=== PATIENT | female | born 1940 | race Caucasian/White ===

== ENCOUNTER 2016-08-02 12:25 | Emergency (ER) | payer MEDICARE, OTHER ==
--- NOTE | 2016-08-02 12:51 | ER Document Report ---
ED Medical Screen (RME) - General Chief Complaint: Urinary Incontinence Stated Complaint: DISORIENTED,NO CONTROL OF URINE Time seen by provider: 12:49 Mode of Arrival: Wheelchair Information source: Patient, Relative TRAVEL OUTSIDE OF THE [place] IN LAST 30 DAYS: No - HPI Patient complains to provider of: urinary frequency, dysuria, forgetful Onset: Other - 4 days Onset/Duration: Gradual, Persistent Quality of pain: Pressure Severity: Moderate Associated Symptoms: Dysuria. denies: Diarrhea, Fever, Nausea, Vomiting Exacerbated by: Denies Relieved by: Denies Similar symptoms previously: Yes Recently seen / treated by doctor: Yes - Amoxicillin for bronchitis - Related Data Allergies/Adverse Reactions: No Known Allergies Allergy (Verified 08/02/16 12:33) Past Medical History - Past Medical History Cardiac Medical History: Reports: Hx Hypercholesterolemia - no meds x 2 years, after 60 pound wt loss, Hx Hypertension - no meds x 2 years, after 60 pound wt loss Denies: Hx Atrial Fibrillation, Hx Congestive Heart Failure, Hx Coronary Artery Disease, Hx Heart Attack, Hx Peripheral Vascular Disease, Hx Pulmonary Embolism, Hx Heart Murmur Pulmonary Medical History: Reports: Hx Pneumonia - denies hospitalization, Hx Sleep Apnea - CPAP ill fitting, does not wear Denies: Hx Asthma, Hx Bronchitis, Hx COPD, Hx Respiratory Failure, Hx Tuberculosis Neurological Medical History: Reports: Hx Cerebrovascular Accident - 2011 , Hx Seizures - possibly r/t severe "migraine type" AGUILAR's Endocrine Medical History: Reports: Hx Diabetes Mellitus Type 2, Hx Hypothyroidism - meds Rx'ed . Denies: Hx Graves' Disease, Hx Hyperthyroidism Renal/ Medical History: Denies: Hx End Stage Renal Disease, Hx Kidney Stones, Hx Ovarian Cysts, Hx Peritoneal Dialysis, Hx Pelvic Inflammatory Disease Malignancy Medical History: Denies: Hx Breast Cancer, Hx Cervical Cancer, Hx Leukemia, Hx Lung Cancer, Hx Ovarian Cancer GI Medical History: Reports: Hx Gastroesophageal Reflux Disease - meds x 20+ years, Hx Ulcer - . Denies: Hx Crohn's Disease, Hx Hepatitis, Hx Hiatal Hernia, Hx Irritable Bowel, Hx Liver Failure Musculoskeltal Medical History: Reports Hx Arthritis, Denies Hx Fibromyalgia, Denies Hx Multiple Sclerosis, Denies Hx Muscular Dystrophy Psychiatric Medical History: Reports: Hx Dementia, Hx Depression Denies: Hx Bipolar Disorder, Hx Post Traumatic Stress Disorder, Hx Schizophrenia Traumatic Medical History: Reports: Hx Fractures - 5th toe RT foot Infectious Medical History: Denies: Hx Hepatitis, Hx HIV Past Surgical History: Reports: Hx Appendectomy - incidental with YOSELIN, Hx Cholecystectomy - open sheila , Hx Hysterectomy - YOSELIN BSO . Denies: Hx Bowel Surgery, Hx Section, Hx Colostomy, Hx Coronary Artery Bypass Graft, Hx Gastric Bypass Surgery, Hx Herniorrhaphy, Hx Mastectomy, Hx Open Heart Surgery, Hx Pacemaker, Hx Tonsillectomy, Hx Tubal Ligation - Immunizations Immunizations up to date: Yes Hx Diphtheria, Pertussis, Tetanus Vaccination: Yes Physical Exam - Vital signs Vitals: Temp Pulse Resp BP Pulse Ox 97.4 F 77 18 184/104 H 94 08/02/16 12:33 08/02/16 12:33 08/02/16 12:33 08/02/16 12:33 08/02/16 12:33 Course - Vital Signs Vital signs: Temp Pulse Resp BP Pulse Ox 97.4 F 77 18 184/104 H 94 08/02/16 12:33 08/02/16 12:33 08/02/16 12:33 08/02/16 12:33 08/02/16 12:33
--- NOTE | 2016-08-02 13:26 | ER Document Report ---
ED GI/ - General Chief Complaint: Urinary Incontinence Stated Complaint: DISORIENTED,NO CONTROL OF URINE Mode of Arrival: Wheelchair Information source: Patient TRAVEL OUTSIDE OF THE [place] IN LAST 30 DAYS: No - HPI Patient complains to provider of: Other - CONFUSED, URINARY URGENCY W/ INCONTINENCE Onset: Yesterday Timing/Duration: Gradual, Waxing and waning Quality of pain: No pain Severity at maximum: Moderate Severity in ED: Mild Context: denies: Bad food, Lifting, Out of the country travel, , Recent trauma Vaginal bleeding (Compared to normal period): None Menstrual period history: S/P menopausal Associated symptoms: Urinary urgency. denies: Chills, Fever, Hematuria, Nausea , Sweaty Exacerbated by: Denies Relieved by: Denies Similar symptoms previously: Yes - W/ UTI Recently seen / treated by doctor: Yes - Rx FOR BRONCHITIS (AMOXIL) - Related Data Allergies/Adverse Reactions: doxepin Allergy (Verified 08/02/16 12:49) Home Medications: Current Home Medications Buspirone HCl [Buspar 10 mg Tablet] 10 mg PO BID 08/02/16 [History] Hydromorphone HCl 2 mg PO BID 08/02/16 [History] Temazepam 30 mg PO DAILY 08/02/16 [History] Temazepam [Restoril 15 mg Capsule] 30 mg PO QHS 08/02/16 [History] Past Medical History - General Information source: Patient, Relative - Social History Smoking Status: Never Smoker Cigarette use (# per day): No Chew tobacco use (# tins/day): No Smoking Education Provided: No Frequency of alcohol use: None Drug Abuse: None Lives with: Family Family History: Reviewed & Not Pertinent Patient has suicidal ideation: No Patient has homicidal ideation: No - Past Medical History Cardiac Medical History: Reports: Hx Hypercholesterolemia - no meds x 2 years, after 60 pound wt loss, Hx Hypertension - no meds x 2 years, after 60 pound wt loss Denies: Hx Atrial Fibrillation, Hx Congestive Heart Failure, Hx Coronary Artery Disease, Hx Heart Attack, Hx Peripheral Vascular Disease, Hx Pulmonary Embolism, Hx Heart Murmur Pulmonary Medical History: Reports: Hx Pneumonia - denies hospitalization, Hx Sleep Apnea - CPAP ill fitting, does not wear Denies: Hx Asthma, Hx Bronchitis, Hx COPD, Hx Respiratory Failure, Hx Tuberculosis Neurological Medical History: Reports: Hx Cerebrovascular Accident - 2006, 2011 , Hx Seizures - possibly r/t severe "migraine type" AGUILAR's Endocrine Medical History: Reports: Hx Diabetes Mellitus Type 2, Hx Hypothyroidism - meds Rx'ed . Denies: Hx Graves' Disease, Hx Hyperthyroidism Renal/ Medical History: Denies: Hx End Stage Renal Disease, Hx Kidney Stones, Hx Ovarian Cysts, Hx Peritoneal Dialysis, Hx Pelvic Inflammatory Disease Malignancy Medical History: Denies: Hx Breast Cancer, Hx Cervical Cancer, Hx Leukemia, Hx Lung Cancer, Hx Ovarian Cancer GI Medical History: Reports: Hx Gastroesophageal Reflux Disease - meds x 20+ years, Hx Ulcer - . Denies: Hx Crohn's Disease, Hx Hepatitis, Hx Hiatal Hernia, Hx Irritable Bowel, Hx Liver Failure Musculoskeltal Medical History: Reports Hx Arthritis, Denies Hx Fibromyalgia, Denies Hx Multiple Sclerosis, Denies Hx Muscular Dystrophy Psychiatric Medical History: Reports: Hx Dementia, Hx Depression Denies: Hx Bipolar Disorder, Hx Post Traumatic Stress Disorder, Hx Schizophrenia Traumatic Medical History: Reports: Hx Fractures - 5th toe RT foot Infectious Medical History: Denies: Hx Hepatitis, Hx HIV Past Surgical History: Reports: Hx Appendectomy - incidental with YOSELIN, Hx Cholecystectomy - open sheila , Hx Hysterectomy - YOSELIN BSO . Denies: Hx Bowel Surgery, Hx Section, Hx Colostomy, Hx Coronary Artery Bypass Graft, Hx Gastric Bypass Surgery, Hx Herniorrhaphy, Hx Mastectomy, Hx Open Heart Surgery, Hx Pacemaker, Hx Tonsillectomy, Hx Tubal Ligation - Immunizations Immunizations up to date: Yes Hx Diphtheria, Pertussis, Tetanus Vaccination: Yes Hx Pneumococcal Vaccination: 01/15/11 Review of Systems - Review of Systems Constitutional: No symptoms reported. denies: Chills, Diaphoresis, Fever EENT: No symptoms reported Cardiovascular: No symptoms reported Respiratory: Cough Gastrointestinal: No symptoms reported. denies: Diarrhea, Nausea, Vomiting Genitourinary: See HPI Female Genitourinary: Post menopausal Musculoskeletal: No symptoms reported Skin: No symptoms reported Neurological/Psychological: No symptoms reported Physical Exam - Vital signs Vitals: Temp Pulse Resp BP Pulse Ox 97.4 F 77 18 184/104 H 94 08/02/16 12:33 08/02/16 12:33 08/02/16 12:33 08/02/16 12:33 08/02/16 12:33 Interpretation: Hypertensive. No: Tachycardic, Hypoxic, Tachypneic, Febrile - General General appearance: Appears well, Alert In distress: None - HEENT Head: Normocephalic Eyes: Normal Conjunctiva: Normal Ears: Normal Nasal: Normal Mucous membranes: Dry, Other - [place]ES ON PALATE, ? MARY - Respiratory Respiratory status: No respiratory distress Chest status: Nontender Breath sounds: Nonproductive cough - FREQUENT - Cardiovascular Rhythm: Regular Heart sounds: Normal auscultation Murmur: No - Abdominal Inspection: Normal Distension: No distension Bowel sounds: Normal Tenderness: Tender - SUPRAPUBIC - Back Back: Normal - Extremities General upper extremity: Normal inspection General lower extremity: Normal inspection. No: Tender, Edema - Neurological Neuro grossly intact: Yes Cognition: Normal Orientation: AAOx4 - Psychological Associated symptoms: Normal affect, Normal mood - Skin Skin Temperature: Warm Skin Moisture: Dry Skin Color: Normal Skin Turgor: Elastic Course - Re-evaluation Re-evalutation: 08/02/16 19:13 Patient states she feels much better. Denies thirst. Blood sugar is coming down satisfactorily. Hypertension persists and will need treatment. Diagnoses and treatment plan discussed with patient and family. She will be started on glyburide and a low dose of lisinopril and should be followed up by her PCP in 3 days. - Vital Signs Vital signs: Temp Pulse Resp BP Pulse Ox 97.4 F 77 18 168/90 H 94 08/02/16 12:33 08/02/16 12:33 08/02/16 18:01 08/02/16 18:01 08/02/16 18:01 - Laboratory Result Diagrams: 08/02/16 13:00 08/02/16 13:00 Laboratory results interpreted by me: 08/02/16 08/02/16 08/02/16 13:00 13:00 13:05 WBC 19.4 H Hgb 16.2 H Hct 47.6 H Seg Neutrophils % 91.7 H Lymphocytes % 5.5 L Monocytes % 2.5 L Absolute Neutrophils 17.7 H Sodium 129.2 L Chloride 92 L Carbon Dioxide 21 L BUN 33 H Glucose 672 H* POC Glucose Alkaline Phosphatase 133 H Urine Glucose (UA) >=500 H Urine Blood SMALL H 08/02/16 08/02/16 08/02/16 14:38 15:28 16:50 WBC Hgb Hct Seg Neutrophils % Lymphocytes % Monocytes % Absolute Neutrophils Sodium Chloride Carbon Dioxide BUN Glucose POC Glucose 476 H* 489 H* 340 H Alkaline Phosphatase Urine Glucose (UA) Urine Blood 08/02/16 17:46 WBC Hgb Hct Seg Neutrophils % Lymphocytes % Monocytes % Absolute Neutrophils Sodium Chloride Carbon Dioxide BUN Glucose POC Glucose 326 H Alkaline Phosphatase Urine Glucose (UA) Urine Blood - Diagnostic Test Radiology reviewed: Image reviewed, Reports reviewed Discharge - Discharge Clinical Impression: Dehydration, Hyperglycemia without ketosis, Essential hypertension Condition: Stable Disposition: HOME, SELF-CARE Instructions: Dehydration (OM), Diabetes (OM), High Blood Pressure, Requiring Treatment ([facility]) Additional Instructions: REST, DRINK PLENTY OF FLUIDS. AVOID SUGAR IN YOUR DIET. TAKE YOUR MEDS PRESCRIBED. FOLLOW UP WITH YOUR PRIMARY CARE PROVIDER WITHIN THE NEXT 3 DAYS FOR RE-CHECK OF YOUR BLOOD PRESSURE AND BLOOD SUGAR. RETURN TO E.R. IF YOU GET WORSE, ANY TIME. Prescriptions: Glyburide 5 mg PO QAM #7 tablet Lisinopril 5 mg PO DAILY #7 tablet Referrals: SIGIFREDO LEVINE MD [Primary Care Provider] - Follow up in 3-5 days
[2016-08-02 13:44] LABS: ALANINE AMINOTRANSFERASE 51 U/L (9-52); ALBUMIN 4.3 g/dL (3.5-5.0); ALKALINE PHOSPHATASE 133 U/L (38-126); ANION GAP 16 (5-19); ASPARTATE AMINO TRANSFERASE 32 U/L (14-36); BILIRUBIN,DIRECT 0.3 mg/dL (0.0-0.4); BILIRUBIN,TOTAL 0.9 mg/dL (0.2-1.3); BLOOD UREA NITROGEN 33 mg/dL (7-20); CALCIUM 10.1 mg/dL (8.4-10.2); CARBON DIOXIDE 21 mmol/L (22-30); CHLORIDE 92 mmol/L (98-107); CREATININE RESULT 0.79 mg/dL (0.52-1.25); SODIUM 129.2 mmol/L (137-145); TOTAL PROTEIN 7.6 g/dL (6.3-8.2)
[2016-08-02 13:49] LABS: ABSOLUTE LYMPHOCYTES (AUTO) 1.1 10^3/uL (0.5-4.7); ABSOLUTE MONOCYTES (AUTO) 0.5 10^3/uL (0.1-1.4); ABSOLUTE NEUT (AUTO) 17.7 10^3/uL (1.7-8.2); BASOPHILS % (AUTO) 0.2 % (0-2); EOSINOPHILS % (AUTO) 0.1 % (0-6); HEMATOCRIT 47.6 % (36.0-47.0); HEMOGLOBIN 16.2 g/dL (12.0-15.5); LYMPHOCYTES % (AUTO) 5.5 % (13-45); MEAN CORPUSCULAR HEMOGLOBIN 31.2 pg (27.0-33.4); MEAN CORPUSCULAR VOLUME 92 fl (80-97); MONOCYTES % (AUTO) 2.5 % (3-13); RED BLOOD COUNT 5.18 10^6/uL (3.72-5.28); RED CELL DISTRIBUTION WIDTH 12.7 % (11.5-14.0); SEGMENTED NEUTROPHILS % (AUTO) 91.7 % (42-78); WHITE BLOOD COUNT 19.4 10^3/uL (4.0-10.5)
[2016-08-02 14:07] LABS: GLUCOSE 672 mg/dL (75-110)
[2016-08-02 14:19] LABS: APPEARANCE,URINE CLEAR; BILIRUBIN,URINE NEGATIVE (NEGATIVE); GLUCOSE, URINE >=500 mg/dL (NEGATIVE); KETONES,URINE NEGATIVE (NEGATIVE); LEUKOCYTE ESTERASE,URINE NEGATIVE (NEGATIVE); NITRITE,URINE NEGATIVE (NEGATIVE); PROTEIN,URINE NEGATIVE (NEGATIVE); URINE SPECIFIC GRAVITY 1.029; UROBILINOGEN,URINE NEGATIVE mg/dL (<2.0)
[2016-08-02] MEDS ORDERED: NORMAL SALINE 1000 ML 1,000 ML IV PRN (14:19)
[2016-08-02] MEDS ORDERED: NORMAL SALINE 100 ML with INSULIN REGULAR, HUMAN 100 UNIT IV PRN ×2 (14:21)
[2016-08-02] MEDS ORDERED: INSULIN REG, HUMAN 100 UNIT/ML 3 ML VIAL (PYX) ONE (14:37)
[2016-08-02] MEDS ORDERED: METFORMIN HCL 500 MG TABLET PO ONE (15:33)
[2016-08-02] MEDS ORDERED: LISINOPRIL 5 MG TABLET PO ONE (19:11)
[2016-08-02 20:26] VITALS: BP 153/94
== END 2016-08-02 20:25 | disposition home or self-care (01) ==
LOC: ER 12:25
DX: E11.65 Type 2 diabetes mellitus with hyperglycemia (principal); I10 Essential (primary) hypertension; E86.0 Dehydration; R32 Unspecified urinary incontinence; R39.15 Urgency of urination; R05 Cough; Z87.440 Personal history of urinary (tract) infections; Z88.8 Allergy status to other drugs, medicaments and biological substances; Z86.73 Personal history of transient ischemic attack (TIA), and cerebral infarction without residual deficits
CPT/HCPCS: 99284; 96360; 96361; 36415; 87040; 87086; 82962; 85025; 87088; 80053; 81001; 87186; 71010; A9270 ×2; J7030

== ENCOUNTER 2017-07-24 16:22 | Emergency (ER) | payer MEDICARE, OTHER ==
--- NOTE | 2017-07-24 17:22 | ER Document Report ---
ED Medical Screen (RME) - General Chief Complaint: Weakness Stated Complaint: weakness Time Seen by Provider: 07/24/17 17:01 Notes: Patient is a 77-year-old female presents emergency department via EMS with a chief complaint of generalized weakness, abdominal discomfort, vomiting and dark tarry stools for 1 week. She is on Aggrenox for previous TIAs and CVAs. Past medical history significant for vascular dementia, hypothyroidism, depression anxiety. At home she takes Aggrenox, denies pill, hydromorphone, Synthroid, Nexium, Restasis, temazepam, Wellbutrin, BuSpar, lisinopril. TRAVEL OUTSIDE OF THE [place] IN LAST 30 DAYS: No - Related Data Allergies/Adverse Reactions: doxepin Allergy (Verified 08/02/16 12:49) Past Medical History - Past Medical History Cardiac Medical History: Reports: Hx Hypercholesterolemia - no meds x 2 years, after 60 pound wt loss, Hx Hypertension - no meds x 2 years, after 60 pound wt loss Denies: Hx Atrial Fibrillation, Hx Congestive Heart Failure, Hx Coronary Artery Disease, Hx Heart Attack, Hx Peripheral Vascular Disease, Hx Pulmonary Embolism, Hx Heart Murmur Pulmonary Medical History: Reports: Hx Pneumonia - denies hospitalization, Hx Sleep Apnea - CPAP ill fitting, does not wear Denies: Hx Asthma, Hx Bronchitis, Hx COPD, Hx Respiratory Failure, Hx Tuberculosis Neurological Medical History: Reports: Hx Cerebrovascular Accident - 2006, 2011 , Hx Seizures - possibly r/t severe "migraine type" AGUILAR's Endocrine Medical History: Reports: Hx Diabetes Mellitus Type 2, Hx Hypothyroidism - meds Rx'ed . Denies: Hx Graves' Disease, Hx Hyperthyroidism Renal/ Medical History: Denies: Hx End Stage Renal Disease, Hx Kidney Stones, Hx Ovarian Cysts, Hx Peritoneal Dialysis, Hx Pelvic Inflammatory Disease Malignancy Medical History: Denies: Hx Breast Cancer, Hx Cervical Cancer, Hx Leukemia, Hx Lung Cancer, Hx Ovarian Cancer GI Medical History: Reports: Hx Gastroesophageal Reflux Disease - meds x 20+ years, Hx Ulcer - . Denies: Hx Crohn's Disease, Hx Hepatitis, Hx Hiatal Hernia, Hx Irritable Bowel, Hx Liver Failure, Hx Pancreatitis Musculoskeltal Medical History: Reports Hx Arthritis, Denies Hx Fibromyalgia, Denies Hx Multiple Sclerosis, Denies Hx Muscular Dystrophy Psychiatric Medical History: Reports: Hx Dementia, Hx Depression Denies: Hx Bipolar Disorder, Hx Post Traumatic Stress Disorder, Hx Schizophrenia Traumatic Medical History: Reports: Hx Fractures - 5th toe RT foot Infectious Medical History: Denies: Hx Hepatitis, Hx HIV Past Surgical History: Reports: Hx Appendectomy - incidental with YOSELIN, Hx Cholecystectomy - open sheila , Hx Hysterectomy - YOSELIN BSO 1969'. Denies: Hx Bowel Surgery, Hx Section, Hx Colostomy, Hx Coronary Artery Bypass Graft, Hx Gastric Bypass Surgery, Hx Herniorrhaphy, Hx Mastectomy, Hx Open Heart Surgery, Hx Pacemaker, Hx Tonsillectomy, Hx Tubal Ligation - Immunizations Immunizations up to date: Yes Hx Diphtheria, Pertussis, Tetanus Vaccination: Yes Physical Exam - Vital signs Vitals: Temp Pulse Resp BP Pulse Ox 97.9 F 60 16 128/68 H 97 07/24/17 16:47 07/24/17 16:47 07/24/17 16:47 07/24/17 16:47 07/24/17 16:47 - Notes Notes: PHYSICAL EXAM GENERAL: Alert, interacts well. Pale HEAD: Normocephalic, atraumatic. EYES: Pupils equal, round, and reactive to light. Extraocular movements intact. ENT: Oral mucosa moist, tongue midline. NECK: Full range of motion. Supple. Trachea midline. LUNGS: Clear to auscultation bilaterally, no wheezes, rales, or rhonchi. No respiratory distress. HEART: Regular rate and rhythm. No murmurs, gallops, or rubs. ABDOMEN: Soft, nondistended, nontender. No guarding, rebound, or rigidity.. Bowel sounds present in all 4 quadrants. EXTREMITIES: Moves all 4 extremities spontaneously. No edema, radial and dorsalis pedis pulses 2/4 bilaterally. No cyanosis. NEUROLOGICAL: Alert and oriented x4. Normal speech. PSYCH: Normal affect, normal mood. SKIN: Warm, dry, normal turgor. No rashes or lesions noted. Course - Vital Signs Vital signs: Temp Pulse Resp BP Pulse Ox 97.9 F 60 16 128/68 H 97 07/24/17 16:47 07/24/17 16:47 07/24/17 16:47 07/24/17 16:47 07/24/17 16:47
[2017-07-24 17:52] LABS: ABSOLUTE LYMPHOCYTES (AUTO) 0.7 10^3/uL (0.5-4.7); ABSOLUTE MONOCYTES (AUTO) 0.3 10^3/uL (0.1-1.4); ABSOLUTE NEUT (AUTO) 3.5 10^3/uL (1.7-8.2); BASOPHILS % (AUTO) 0.6 % (0-2); HEMATOCRIT 35.8 % (36.0-47.0); HEMOGLOBIN 12.7 g/dL (12.0-15.5); LYMPHOCYTES % (AUTO) 14.7 % (13-45); MEAN CORPUSCULAR HEMOGLOBIN 35.1 pg (27.0-33.4); MEAN CORPUSCULAR HGB CONC 35.3 g/dL (32.0-36.0); MEAN CORPUSCULAR VOLUME 100 fl (80-97); PLATELET COUNT 114 10^3/uL (150-450); RED CELL DISTRIBUTION WIDTH 13.4 % (11.5-14.0); SEGMENTED NEUTROPHILS % (AUTO) 77.7 % (42-78); TOTAL CELLS COUNTED % (AUTO) 100 %; WHITE BLOOD COUNT 4.5 10^3/uL (4.0-10.5)
[2017-07-24 18:05] LABS: INTERNATIONAL RATION (INR) 1.08; PROTHROMBIN TIME 14.5 SEC (11.4-15.4)
[2017-07-24 18:06] LABS: PARTIAL THROMBOPLASTIN TIME 38.4 SEC (23.5-35.8)
[2017-07-24 18:13] LABS: ALANINE AMINOTRANSFERASE 239 U/L (9-52); ALBUMIN 4.1 g/dL (3.5-5.0); ALKALINE PHOSPHATASE 69 U/L (38-126); ANION GAP 11 (5-19); ASPARTATE AMINO TRANSFERASE 195 U/L (14-36); BILIRUBIN,DIRECT 0.4 mg/dL (0.0-0.4); BILIRUBIN,TOTAL 0.6 mg/dL (0.2-1.3); BLOOD UREA NITROGEN 22 mg/dL (7-20); CALCIUM 8.8 mg/dL (8.4-10.2); CARBON DIOXIDE 25 mmol/L (22-30); CHLORIDE 102 mmol/L (98-107); GLUCOSE 130 mg/dL (75-110); POTASSIUM 3.9 mmol/L (3.6-5.0); SODIUM 138.3 mmol/L (137-145); TOTAL PROTEIN 7.2 g/dL (6.3-8.2)
[2017-07-24] MEDS ORDERED: PANTOPRAZOLE SODIUM 40 MG VIAL IV PRN (19:35)
[2017-07-24] MEDS ORDERED: PANTOPRAZOLE SODIUM 40 MG VIAL IV ONE (19:36)
--- NOTE | 2017-07-24 19:40 | ER Document Report ---
ED General - General Chief Complaint: General Weakness Stated Complaint: weakness Time Seen by Provider: 07/24/17 17:01 Notes: Patient is a 77-year-old female with a past medical history of TIA and stroke chronically anticoagulated on Aggrenox as a result of this prior history, hypertension, hyperlipidemia, and dementia who presents with 3 days of nausea, vomiting, dark stool, and generalized fatigue. The patient has no prior history of GI bleeds. Her symptoms have been worsening since onset. Nothing improves or worsens her symptoms. She has not seen a primary care doctor regarding today's concerns. She does note a dull, constant, aching upper abdominal pain. She states that this pain is overall been unchanged since onset. She denies any fever or constitutional symptoms. Family at the bedside supports her history. TRAVEL OUTSIDE OF THE [place] IN LAST 30 DAYS: No - Related Data Allergies/Adverse Reactions: doxepin Allergy (Verified 07/24/17 17:46) Past Medical History - General Information source: Patient, Relative - Social History Smoking Status: Never Smoker Chew tobacco use (# tins/day): No Frequency of alcohol use: None Drug Abuse: None Lives with: Family Family History: Reviewed & Not Pertinent Patient has suicidal ideation: No Patient has homicidal ideation: No - Past Medical History Cardiac Medical History: Reports: Hx Hypercholesterolemia - no meds x 2 years, after 60 pound wt loss, Hx Hypertension - no meds x 2 years, after 60 pound wt loss Denies: Hx Atrial Fibrillation, Hx Congestive Heart Failure, Hx Coronary Artery Disease, Hx Heart Attack, Hx Peripheral Vascular Disease, Hx Pulmonary Embolism, Hx Heart Murmur Pulmonary Medical History: Reports: Hx Pneumonia - denies hospitalization, Hx Sleep Apnea - CPAP ill fitting, does not wear Denies: Hx Asthma, Hx Bronchitis, Hx COPD, Hx Respiratory Failure, Hx Tuberculosis Neurological Medical History: Reports: Hx Cerebrovascular Accident - 2006, 2011 , Hx Seizures - possibly r/t severe "migraine type" AGUILAR's Endocrine Medical History: Reports: Hx Diabetes Mellitus Type 2, Hx Hypothyroidism - meds Rx'ed . Denies: Hx Graves' Disease, Hx Hyperthyroidism Renal/ Medical History: Denies: Hx End Stage Renal Disease, Hx Kidney Stones, Hx Ovarian Cysts, Hx Peritoneal Dialysis, Hx Pelvic Inflammatory Disease Malignancy Medical History: Denies: Hx Breast Cancer, Hx Cervical Cancer, Hx Leukemia, Hx Lung Cancer, Hx Ovarian Cancer GI Medical History: Reports: Hx Gastroesophageal Reflux Disease - meds x 20+ years, Hx Ulcer - . Denies: Hx Crohn's Disease, Hx Hepatitis, Hx Hiatal Hernia, Hx Irritable Bowel, Hx Liver Failure, Hx Pancreatitis Musculoskeltal Medical History: Reports Hx Arthritis, Denies Hx Fibromyalgia, Denies Hx Multiple Sclerosis, Denies Hx Muscular Dystrophy Psychiatric Medical History: Reports: Hx Dementia, Hx Depression Denies: Hx Bipolar Disorder, Hx Post Traumatic Stress Disorder, Hx Schizophrenia Traumatic Medical History: Reports: Hx Fractures - 5th toe RT foot Infectious Medical History: Denies: Hx Hepatitis, Hx HIV Past Surgical History: Reports: Hx Appendectomy - incidental with YOSELIN, Hx Cholecystectomy - open sheila , Hx Hysterectomy - YOSELIN BSO . Denies: Hx Bowel Surgery, Hx Section, Hx Colostomy, Hx Coronary Artery Bypass Graft, Hx Gastric Bypass Surgery, Hx Herniorrhaphy, Hx Mastectomy, Hx Open Heart Surgery, Hx Pacemaker, Hx Tonsillectomy, Hx Tubal Ligation - Immunizations Immunizations up to date: Yes Hx Diphtheria, Pertussis, Tetanus Vaccination: Yes Hx Pneumococcal Vaccination: 01/15/11 Review of Systems - Review of Systems Notes: Constitutional: Negative for fever. HENT: Negative for sore throat. Eyes: Negative for visual changes. Cardiovascular: Negative for chest pain. Respiratory: Negative for shortness of breath. Gastrointestinal: Positive for abdominal pain, vomiting and melanotic stool Genitourinary: Negative for dysuria. Musculoskeletal: Negative for back pain. Skin: Negative for rash. Neurological: Negative for headaches, weakness or numbness. 10 point ROS negative except as marked above and in HPI. Physical Exam - Vital signs Vitals: Temp Pulse Resp BP Pulse Ox 97.9 F 60 16 128/68 H 97 07/24/17 16:47 07/24/17 16:47 07/24/17 16:47 07/24/17 16:47 07/24/17 16:47 Interpretation: Normal Notes: PHYSICAL EXAMINATION: GENERAL: Well-appearing, well-nourished and in no acute distress. HEAD: Atraumatic, normocephalic. EYES: Pupils equal round and reactive to light, extraocular movements intact, sclera anicteric, conjunctiva are normal. ENT: nares patent, oropharynx clear without exudates. Moist mucous membranes. NECK: Normal range of motion, supple without lymphadenopathy LUNGS: Breath sounds clear to auscultation bilaterally and equal. No wheezes rales or rhonchi. HEART: Regular rate and rhythm without murmurs ABDOMEN: Soft, mild epigastric abdominal tenderness to palpation but no other localized areas of tenderness, normoactive bowel sounds. No guarding, no rebound. No masses appreciated. Rectal exam: Melanotic stool EXTREMITIES: Normal range of motion, no pitting or edema. No cyanosis. NEUROLOGICAL: No focal neurological deficits. Moves all extremities spontaneously and on command. PSYCH: Normal mood, normal affect. SKIN: Warm, Dry, normal turgor, no rashes or lesions noted. Course - Re-evaluation Re-evalutation: 07/24/17 19:38 Patient presents with 3 days of melanotic stools with associated generalized weakness, nausea and vomiting without hematemesis. The patient has some mild epigastric and left upper quadrant abdominal tenderness on palpation but no areas of rebound or guarding. She is anticoagulated on Aggrenox. Her vitals are within acceptable limits. Bedside examination does show melena on rectal examination. We do not currently have GI coverage and given that patient is anticoagulated, is actively having melanotic stools with associated symptoms suggesting upper GI bleed she will require transfer to [facility] for GI evaluation. She has been started on Protonix infusion after a bolus of Protonix. She has been made n.p.o. Antiplatelet is being held. Will continue to monitor until patient is able to be transferred. 07/24/17 19:53 I discussed this case with Dr. Adi Joiner who has accepted the patient for transfer. She remains hemodynamically within acceptable limits. Waiting transport 07/24/17 22:33 Patient has remained hemodynamically within normal limits. Transport has arrived for transfer and patient is stable for transport at this time. - Vital Signs Vital signs: Temp Pulse Resp BP Pulse Ox 98.1 F 67 13 129/67 H 96 07/24/17 22:34 07/24/17 17:45 07/24/17 22:34 07/24/17 22:34 07/24/17 22:34 - Laboratory Result Diagrams: 07/24/17 17:36 07/24/17 17:36 Laboratory results interpreted by me: 07/24/17 07/24/17 07/24/17 17:36 17:36 17:36 RBC 3.60 L Hct 35.8 L MCV 100 H MCH 35.1 H Plt Count 114 L APTT 38.4 H BUN 22 H Glucose 130 H AST 195 H ALT 239 H Discharge - Discharge Clinical Impression: Upper GI bleed, Melena, Blood loss anemia, Upper abdominal pain Nausea and vomiting Qualifiers: Vomiting type: unspecified Vomiting Intractability: non-intractable Qualified Code(s): R11.2 - Nausea with vomiting, unspecified Condition: Fair Disposition: [facility] Referrals: SIGIFREDO LEVINE MD [Primary Care Provider] - Follow up as needed
[2017-07-24 22:42] VITALS: BP 129/67
== END 2017-07-24 22:50 | disposition short-term general hospital (02) ==
LOC: ER 16:22
DX: K92.2 Gastrointestinal hemorrhage, unspecified (principal); D50.0 Iron deficiency anemia secondary to blood loss (chronic); R53.1 Weakness; R11.2 Nausea with vomiting, unspecified; R53.83 Other fatigue; R10.10 Upper abdominal pain, unspecified; R10.816 Epigastric abdominal tenderness; R10.812 Left upper quadrant abdominal tenderness; I10 Essential (primary) hypertension; E11.9 Type 2 diabetes mellitus without complications; Z86.73 Personal history of transient ischemic attack (TIA), and cerebral infarction without residual deficits; Z79.02 Long term (current) use of antithrombotics/antiplatelets; Z88.8 Allergy status to other drugs, medicaments and biological substances; Z87.19 Personal history of other diseases of the digestive system; Z90.49 Acquired absence of other specified parts of digestive tract
CPT/HCPCS: 99285; 96365; 96366; 86900; 86901; 36415; 86850; 85025; 85610; 85730; 82272; 80053; C9113; S0164

== ENCOUNTER 2017-12-25 14:49 | Emergency (ER) | payer MEDICARE, OTHER ==
[2017-12-25 15:45] LABS: INTERNATIONAL RATION (INR) 0.95; PROTHROMBIN TIME 13.2 SEC (11.4-15.4)
[2017-12-25 15:54] LABS: ABSOLUTE EOSINOPHILS # (AUTO) 0.1 10^3/uL (0.0-0.6); ABSOLUTE LYMPHOCYTES (AUTO) 1.9 10^3/uL (0.5-4.7); ABSOLUTE MONOCYTES (AUTO) 0.5 10^3/uL (0.1-1.4); ABSOLUTE NEUT (AUTO) 3.8 10^3/uL (1.7-8.2); BASOPHILS % (AUTO) 0.3 % (0-2); EOSINOPHILS % (AUTO) 1.5 % (0-6); HEMATOCRIT 39.4 % (36.0-47.0); HEMOGLOBIN 13.8 g/dL (12.0-15.5); LYMPHOCYTES % (AUTO) 29.8 % (13-45); MEAN CORPUSCULAR HEMOGLOBIN 32.7 pg (27.0-33.4); MEAN CORPUSCULAR HGB CONC 34.9 g/dL (32.0-36.0); MEAN CORPUSCULAR VOLUME 94 fl (80-97); MONOCYTES % (AUTO) 7.4 % (3-13); PLATELET COUNT 217 10^3/uL (150-450); RED BLOOD COUNT 4.21 10^6/uL (3.72-5.28); RED CELL DISTRIBUTION WIDTH 14.9 % (11.5-14.0); TOTAL CELLS COUNTED % (AUTO) 100 %; WHITE BLOOD COUNT 6.2 10^3/uL (4.0-10.5)
[2017-12-25 15:55] LABS: APPEARANCE,URINE SLIGHTLY-CLOUDY; BILIRUBIN,URINE NEGATIVE (NEGATIVE); COLOR,URINE YELLOW; GLUCOSE, URINE 50 mg/dL (NEGATIVE); KETONES,URINE NEGATIVE (NEGATIVE); LEUKOCYTE ESTERASE,URINE NEGATIVE (NEGATIVE); NITRITE,URINE NEGATIVE (NEGATIVE); PROTEIN,URINE NEGATIVE (NEGATIVE); URINE SPECIFIC GRAVITY 1.019; UROBILINOGEN,URINE NEGATIVE mg/dL (<2.0)
[2017-12-25 15:57] LABS: ALANINE AMINOTRANSFERASE 22 U/L (9-52); ALBUMIN 4.1 g/dL (3.5-5.0); ALKALINE PHOSPHATASE 61 U/L (38-126); ANION GAP 9 (5-19); ASPARTATE AMINO TRANSFERASE 16 U/L (14-36); BILIRUBIN,DIRECT 0.2 mg/dL (0.0-0.4); BILIRUBIN,TOTAL 0.5 mg/dL (0.2-1.3); BLOOD UREA NITROGEN 24 mg/dL (7-20); CALCIUM 9.3 mg/dL (8.4-10.2); CARBON DIOXIDE 27 mmol/L (22-30); CHLORIDE 105 mmol/L (98-107); CREATINE KINASE 31 U/L (30-135); GLUCOSE 92 mg/dL (75-110); POTASSIUM 3.9 mmol/L (3.6-5.0); SODIUM 140.5 mmol/L (137-145); TOTAL PROTEIN 7.2 g/dL (6.3-8.2)
[2017-12-25 16:02] LABS: VENOUS BLOOD BASE EXCESS 0.5 mmol/L; VENOUS BLOOD HCO3 28.6 mmol/L (20-32); VENOUS BLOOD PCO2 59.9 mmHg (35-63); VENOUS BLOOD PH 7.3 (7.30-7.42)
[2017-12-25 16:07] LABS: CREATINE KINASE MB 1.29 ng/mL (<4.55)
[2017-12-25 16:08] LABS: TROPONIN I < 0.012 ng/mL
[2017-12-25] MEDS ORDERED: NORMAL SALINE 1000 ML 1,000 ML IV PRN (16:12)
--- NOTE | 2017-12-25 16:59 | RADIOLOGY REPORT (SQ) ---
EXAM DESCRIPTION: CHEST 2 VIEWS COMPLETED DATE/TIME: 12/25/2017 4:50 pm REASON FOR STUDY: ams COMPARISON: 05/21/2015 EXAM PARAMETERS: NUMBER OF VIEWS: two views TECHNIQUE: Digital Frontal and Lateral radiographic views of the chest acquired. RADIATION DOSE: NA LIMITATIONS: none FINDINGS: LUNGS AND PLEURA: No opacities, masses or pneumothorax. No pleural effusion. MEDIASTINUM AND HILAR STRUCTURES: No masses or contour abnormalities. HEART AND VASCULAR STRUCTURES: Heart normal size. No evidence for failure. BONES: No acute findings. HARDWARE: None in the chest. OTHER: No other significant finding. IMPRESSION: 1. NO ACUTE RADIOGRAPHIC FINDING IN THE CHEST. TECHNICAL DOCUMENTATION: JOB ID: [id number] [employer] All Rights Reserved Reading location - IP/workstation name: [email or web address]
--- NOTE | 2017-12-25 17:08 | RADIOLOGY REPORT (SQ) ---
EXAM DESCRIPTION: CT HEAD WITHOUT COMPLETED DATE/TIME: 12/25/2017 4:53 pm REASON FOR STUDY: ams COMPARISON: MRI brain 05/20/[address] brain exams since 10/08/2009, most recently 07/04/2015 TECHNIQUE: Axial images acquired through the brain without intravenous contrast. Images reviewed wi th bone, brain and subdural windows. Additional sagittal and coronal reconstructions were generated. Images stored on PACS. All CT scanners at this facility use dose modulation, iterative reconstruction, and/or weight based d osing when appropriate to reduce radiation dose to as low as reasonably achievable (ALARA). [facility]: Dose Right [facility]: CareDose [facility]: Dose Right [facility]: Teradose 4D [facility]: Caliber Data RADIATION DOSE: CT Rad equipment meets quality standard of care and radiation dose reduction techniq ues were employed. CTDIvol: 53.2 mGy. DLP: 964 mGy-cm. mGy. LIMITATIONS: None. FINDINGS: VENTRICLES: Normal size and contour. CEREBRUM: Old left occipital lobe infarct. Old lacunar infarcts in the bilateral basal ganglia and b ifrontal deep periventricular white matter. No CT evidence of acute large territory ischemic change, acute intracranial hemorrhage, mass effect, or midline shift. CEREBELLUM: No masses. No hemorrhage. No alteration of density. No evidence for acute infarction. EXTRAAXIAL SPACES: No fluid collections. No masses. ORBITS AND GLOBE: No intra- or extraconal masses. Normal contour of globe without masses. CALVARIUM: No fracture. PARANASAL SINUSES: No fluid or mucosal thickening. SOFT TISSUES: No mass or hematoma. OTHER: No other significant finding. IMPRESSION: No acute findings. Old left occipital infarct. Old lacunar infarcts in the bilateral basal ganglia and bifrontal deep p eriventricular white matter EVIDENCE OF ACUTE STROKE: NO. COMMENT: Quality ID # [id number]: Final reports with documentation of one or more dose reduction techniques (e.g., Automated exposure control, adjustment of the mA and/or kV according to patient size, use of iterative reconstruction technique) TECHNICAL DOCUMENTATION: JOB ID: [id number] [employer]- All Rights Reserved Reading location - IP/workstation name: [email or web address]
--- NOTE | 2017-12-25 18:50 | ER Document Report ---
ED General - General Chief Complaint: Altered Mental Status Stated Complaint: ALTERED MENTAL STATUS Time Seen by Provider: 12/25/17 15:19 TRAVEL OUTSIDE OF THE [place] IN LAST 30 DAYS: No - HPI Patient complains to provider of: Feeling unwell Notes: Patient coming in for evaluation of feeling unwell states not feeling herself for the last 2 3 days. Generalized weakness. Patient denies any fevers chills nausea vomiting diarrhea. Family bedside states noted patient on exam that she has a urinary tract infection. Patient is chronic pain patient currently on Butrans also takes oral pain medication states she is not taking any extra medications her last few days states that she has had a good appetite staying hydrated and eating plenty of food. Patient denies any chest pain abdominal pain hip pain denies any recent falls or denies any recent trauma. - Related Data Allergies/Adverse Reactions: doxepin Allergy (Verified 07/24/17 17:46) Past Medical History - Social History Smoking Status: Unknown if Ever Smoked Family History: Reviewed & Not Pertinent Patient has suicidal ideation: No Patient has homicidal ideation: No - Past Medical History Cardiac Medical History: Reports: Hx Hypercholesterolemia - no meds x 2 years, after 60 pound wt loss, Hx Hypertension - no meds x 2 years, after 60 pound wt loss Denies: Hx Atrial Fibrillation, Hx Congestive Heart Failure, Hx Coronary Artery Disease, Hx Heart Attack, Hx Peripheral Vascular Disease, Hx Pulmonary Embolism, Hx Heart Murmur Pulmonary Medical History: Reports: Hx Pneumonia - denies hospitalization, Hx Sleep Apnea - CPAP ill fitting, does not wear Denies: Hx Asthma, Hx Bronchitis, Hx COPD, Hx Respiratory Failure, Hx Tuberculosis Neurological Medical History: Reports: Hx Cerebrovascular Accident - 2011 , Hx Seizures - possibly r/t severe "migraine type" AGUILAR's Endocrine Medical History: Reports: Hx Diabetes Mellitus Type 2, Hx Hypothyroidism - meds Rx'ed . Denies: Hx Graves' Disease, Hx Hyperthyroidism Renal/ Medical History: Denies: Hx End Stage Renal Disease, Hx Kidney Stones, Hx Ovarian Cysts, Hx Peritoneal Dialysis, Hx Pelvic Inflammatory Disease Malignancy Medical History: Denies: Hx Breast Cancer, Hx Cervical Cancer, Hx Leukemia, Hx Lung Cancer, Hx Ovarian Cancer GI Medical History: Reports: Hx Gastroesophageal Reflux Disease - meds x 20+ years, Hx Ulcer - . Denies: Hx Crohn's Disease, Hx Hepatitis, Hx Hiatal Hernia, Hx Irritable Bowel, Hx Liver Failure, Hx Pancreatitis Musculoskeletal Medical History: Reports Hx Arthritis, Denies Hx Fibromyalgia, Denies Hx Multiple Sclerosis, Denies Hx Muscular Dystrophy Psychiatric Medical History: Reports: Hx Dementia, Hx Depression Denies: Hx Bipolar Disorder, Hx Post Traumatic Stress Disorder, Hx Schizophrenia Traumatic Medical History: Reports: Hx Fractures - 5th toe RT foot Infectious Medical History: Denies: Hx Hepatitis, Hx HIV Past Surgical History: Reports: Hx Appendectomy - incidental with YOSELIN, Hx Cholecystectomy - open sheila , Hx Hysterectomy. Denies: Hx Bowel Surgery , Hx Section, Hx Colostomy, Hx Coronary Artery Bypass Graft, Hx Gastric Bypass Surgery, Hx Herniorrhaphy, Hx Mastectomy, Hx Open Heart Surgery, Hx Pacemaker, Hx Tonsillectomy, Hx Tubal Ligation - Immunizations Immunizations up to date: Yes Hx Diphtheria, Pertussis, Tetanus Vaccination: Yes Hx Pneumococcal Vaccination: 01/15/11 Review of Systems - Review of Systems Constitutional: No symptoms reported EENT: No symptoms reported Cardiovascular: No symptoms reported Respiratory: No symptoms reported Gastrointestinal: No symptoms reported Genitourinary: No symptoms reported Female Genitourinary: No symptoms reported Musculoskeletal: No symptoms reported Skin: No symptoms reported Hematologic/Lymphatic: No symptoms reported Neurological/Psychological: Weakness -: Yes All other systems reviewed and negative Physical Exam - Vital signs Vitals: Temp 97.6 F 12/25/17 15:04 Interpretation: Hypotensive - General General appearance: Appears well, Alert - HEENT Head: Normocephalic, Atraumatic Eyes: Normal Pupils: PERRL - Respiratory Respiratory status: No respiratory distress Chest status: Nontender Breath sounds: Normal Chest palpation: Normal - Cardiovascular Rhythm: Regular Heart sounds: Normal auscultation Murmur: No - Abdominal Inspection: Normal Distension: No distension Bowel sounds: Normal Tenderness: Nontender Organomegaly: No organomegaly - Back Back: Normal, Nontender - Extremities General upper extremity: Normal inspection, Nontender, Normal color, Normal ROM , Normal temperature General lower extremity: Normal inspection, Nontender, Normal color, Normal ROM , Normal temperature, Normal weight bearing. No: Raine's sign - Neurological Neuro grossly intact: Yes Cognition: Normal Orientation: AAOx4 Charlotte Coma Scale Eye Opening: Spontaneous Charlotte Coma Scale Verbal: Oriented Charlotte Coma Scale Motor: Obeys Commands Charlotte Coma Scale Total: 15 Speech: Normal Motor strength normal: LUE, RUE, LLE, RLE Sensory: Normal - Psychological Associated symptoms: Normal affect, Normal mood - Skin Skin Temperature: Warm Skin Moisture: Dry Skin Color: Normal Course - Re-evaluation Re-evalutation: 12/25/17 21:37 Patient coming in for evaluation of generalized weakness. Blood pressure did improve that there fluid bolus here in ER. Patient states she has not taken any of her extra blood pressure medication or her extra pain medication. At this time no signs of sepsis no signs of any other critical pathology seen. Patient able ambulate per her norm family states that she is handling better after IV fluids. Possible etiology of polypharmacy recommended the patient take her blood pressure at home if the systolic blood pressure is not above 120 to hold off on taking her blood pressure medication also recommend following up with her primary care physician for further medication reconciliation. Patient will be discharged home - Vital Signs Vital signs: Temp Pulse Resp BP Pulse Ox 98.6 F 79 19 110/49 L 100 12/25/17 15:07 12/25/17 15:25 12/25/17 18:23 12/25/17 18:23 12/25/17 18:23 - Laboratory Result Diagrams: 12/25/17 15:12 12/25/17 15:12 Laboratory results interpreted by me: 12/25/17 12/25/17 12/25/17 15:12 15:12 15:25 RDW 14.9 H BUN 24 H Est GFR ( Amer) 55 L Est GFR (Non-Af Amer) 45 L Urine Glucose (UA) 50 H Discharge - Discharge Clinical Impression: Feeling unwell, No problem, feared complaint unfounded, Transient hypotension Disposition: HOME, SELF-CARE Additional Instructions: Your laboratory studies today EKG CT scan of her head chest x-ray urinalysis did not show any signs of infection at this time. Your blood pressure was low upon arrival here to the ER. I would hold off on taking any further blood pressure medications I would make sure that you are drinking and eating healthy diet. I would discuss your pain management regimen with your primary care physician and your pain management doctors as at this along with her blood pressure medications may be the etiology of why you are not been feeling well. Return to the ER if you develop a fever or for any other concerns. Please hold her medication for your blood pressure tonight. Prior to taking her blood pressure medication I would recommend taking your blood pressure with a blood pressure cuff. If the top number is below 120 I would recommend not taking her blood pressure medication. Please make sure you follow-up with your primary care physician and the other physicians for further medication management. Referrals: SIGIFREDO LEVINE MD [Primary Care Provider] - Follow up as needed
[2017-12-25 18:52] VITALS: BP 110/49
--- NOTE | 2017-12-26 09:30 | EKG REPORT ---
SEVERITY:- OTHERWISE NORMAL ECG - SINUS RHYTHM VENTRICULAR PREMATURE COMPLEX : Confirmed by: Nasir Bentley 26-Dec-2017 09:30:18
== END 2017-12-25 19:24 | disposition home or self-care (01) ==
LOC: ER 14:49
DX: I95.89 Other hypotension (principal); R41.82 Altered mental status, unspecified; R53.1 Weakness; I10 Essential (primary) hypertension; E11.9 Type 2 diabetes mellitus without complications
CPT/HCPCS: 93005; 99285; 96360; 96361; 36415; 82553; 82550; 85025; 85610; 80053; 81001; 84484; 82803; 71046; 70450; 93010; J7030

== ENCOUNTER 2018-01-30 10:38 | Emergency (ER) | payer MEDICARE, OTHER ==
[2018-01-30] MEDS ORDERED: ONDANSETRON HCL INJ/PF 4 MG/2 ML SDV IV ONE (11:05)
[2018-01-30] MEDS ORDERED: MORPHINE SULFATE 10 MG/ML INJ IV ONE (11:05)
--- NOTE | 2018-01-30 11:11 | ER Document Report ---
ED Fall - General Chief Complaint: Fall Injury Stated Complaint: LEFT SHOULDER/HIP PAIN Time Seen by Provider: 01/30/18 10:54 Notes: 77-year-old female lost her balance 3 times this morning and fell. The patient did hit her head but had no loss of conscious. Denies neck pain but states she is always have a sore neck. She complains of severe 10 out of 10 left hip pain. She states it hurts to move it EMS brought her in in a pelvic binder. She does have a history of femur fracture on that side. She denies chest pain denies shortness of breath denies abdominal pain. Denies any dizziness before the fall states she has lost her balance on and off in the past. She denies any recent illnesses no fever chills cough sore throat no night sweats gland swelling or hemoptysis. Denies any hematuria or dysuria. TRAVEL OUTSIDE OF THE [place] IN LAST 30 DAYS: No - Related data Allergies/Adverse Reactions: doxepin Allergy (Verified 07/24/17 17:46) Past Medical History - Social History Smoking Status: Unknown if Ever Smoked Family History: Reviewed & Not Pertinent - Past Medical History Cardiac Medical History: Reports: Hx Hypercholesterolemia - no meds x 2 years, after 60 pound wt loss, Hx Hypertension - no meds x 2 years, after 60 pound wt loss Denies: Hx Atrial Fibrillation, Hx Congestive Heart Failure, Hx Coronary Artery Disease, Hx Heart Attack, Hx Peripheral Vascular Disease, Hx Pulmonary Embolism, Hx Heart Murmur Pulmonary Medical History: Reports: Hx Pneumonia - denies hospitalization, Hx Sleep Apnea - CPAP ill fitting, does not wear Denies: Hx Asthma, Hx Bronchitis, Hx COPD, Hx Respiratory Failure, Hx Tuberculosis Neurological Medical History: Reports: Hx Cerebrovascular Accident - 2006, 2011 , Hx Seizures - possibly r/t severe "migraine type" AGUILAR's Endocrine Medical History: Reports: Hx Diabetes Mellitus Type 2, Hx Hypothyroidism - meds Rx'ed . Denies: Hx Graves' Disease, Hx Hyperthyroidism Renal/ Medical History: Denies: Hx End Stage Renal Disease, Hx Kidney Stones, Hx Ovarian Cysts, Hx Peritoneal Dialysis, Hx Pelvic Inflammatory Disease Malignancy Medical History: Denies: Hx Breast Cancer, Hx Cervical Cancer, Hx Leukemia, Hx Lung Cancer, Hx Ovarian Cancer GI Medical History: Reports: Hx Gastroesophageal Reflux Disease - meds x 20+ years, Hx Ulcer - . Denies: Hx Crohn's Disease, Hx Hepatitis, Hx Hiatal Hernia, Hx Irritable Bowel, Hx Liver Failure, Hx Pancreatitis Musculoskeletal Medical History: Reports Hx Arthritis, Denies Hx Fibromyalgia, Denies Hx Multiple Sclerosis, Denies Hx Muscular Dystrophy Psychiatric Medical History: Reports: Hx Dementia, Hx Depression Denies: Hx Bipolar Disorder, Hx Post Traumatic Stress Disorder, Hx Schizophrenia Traumatic Medical History: Reports: Hx Fractures - 5th toe RT foot Infectious Medical History: Denies: Hx Hepatitis, Hx HIV Past Surgical History: Reports: Hx Appendectomy - incidental with YOSELIN, Hx Cholecystectomy - open sheila , Hx Hysterectomy. Denies: Hx Bowel Surgery , Hx Section, Hx Colostomy, Hx Coronary Artery Bypass Graft, Hx Gastric Bypass Surgery, Hx Herniorrhaphy, Hx Mastectomy, Hx Open Heart Surgery, Hx Pacemaker, Hx Tonsillectomy, Hx Tubal Ligation - Immunizations Immunizations up to date: Yes Hx Diphtheria, Pertussis, Tetanus Vaccination: Yes Hx Pneumococcal Vaccination: 01/15/11 Review of Systems - Review of Systems Constitutional: denies: Chills, Fever Cardiovascular: denies: Chest pain, Dyspnea Respiratory: denies: Hemoptysis, Short of breath Gastrointestinal: denies: Nausea, Vomiting, Blood streaked bowels, Black stools , Rectal bleeding Genitourinary: denies: Dysuria, Hematuria Musculoskeletal: Joint pain Skin: denies: Rash Neurological/Psychological: Other - Head injury -: Yes All other systems reviewed and negative Physical Exam - Vital signs Vitals: Temp 98.1 F 01/30/18 10:41 - Notes Notes: GENERAL_APPEARANCE: well_nourished, alert, cooperative, peers uncomfortable VITALS: reviewed, see vital signs table. HEAD: Slight tenderness left occiput area no obvious large hematoma or open wound noted depressions in the skull noted EYES: PERRL, EOMI, conjunctiva_clear. NOSE: no_nasal_discharge. MOUTH: (-)decreased moisture. THROAT: no_tonsilar_inflammation, no_airway_obstruction. no_lymphadenopathy NECK: supple, no focal_neck_tenderness, states neck just feels stiff, (-) thyromegaly. BACK: no_back_tenderness. CHEST_WALL: no_chest_tenderness. LUNGS: no_wheezing, no_rales, no_rhonchi, (-)accessory muscle use, good air exchange bilateral. HEART: normal_rate, normal_rhythm, normal_S1, normal_S2, (-)S3, (-)S4, no_ murmur, no_rub. ABDOMEN: normal_BS, soft, no_abd_tenderness, (-)guarding, (-)rebound, no_ organomegaly, no_abd_masses. EXTREMITIES: good pulses in all_extremities, there is slight rotation and shortening noted to the left leg with pain at the greater trochanter, no_edema. SKIN: warm, dry, good_color, no_rash. MENTAL_STATUS: speech_clear, oriented_X_3, normal_affect, responds_ appropriately to questions. NEURO: Neg Motor or Sensory Deficits on exam, CN 2-12 intact, DTR 2+ symmetric x 4, No cerbellar signs Course - Re-evaluation Re-evalutation: 01/30/18 11:11 Patient had several mechanical falls this morning she is always had an issue with balance. Will get a CT of her head to assess for any traumatic injuries or any other kind of PAIL TESTER lesion causing this. Patient will have some generalized blood work done. We will x-ray her hip to look for fractures. Coags preop labs if needed. We will keep her n.p.o. 01/30/18 12:47 All imaging is negative the left shoulder there may be a slight AC separation the patient is not really specifically tender there. She does have pain upon moving the shoulder around I spoke with that to her. She does not want a sling she states she would likely make her falling worse. We will discharge the patient home. - Vital Signs Vital signs: Temp Pulse Resp BP Pulse Ox 98.1 F 21 H 110/63 96 01/30/18 10:41 01/30/18 11:01 01/30/18 11:01 01/30/18 11:01 - Laboratory Result Diagrams: 01/30/18 12:00 01/30/18 12:00 - Diagnostic Test Radiology results interpreted by me: 01/30/18 12:46 Shoulder X-Ray 01/30/18 00:00 IMPRESSION: Question widening at the left acromioclavicular joint. Bones osteopenic. Left shoulder films otherwise unremarkable Chest X-Ray 01/30/18 11:03 IMPRESSION: NO ACUTE RADIOGRAPHIC FINDING IN THE CHEST. Hip X-Ray 01/30/18 11:03 IMPRESSION: No acute findings Cervical Spine CT 01/30/18 11:04 IMPRESSION: No acute fracture or malalignment Head CT 01/30/18 11:04 IMPRESSION: No acute findings. EVIDENCE OF ACUTE STROKE: NO. Discharge - Discharge Clinical Impression: Accident due to mechanical fall without injury Qualifiers: Encounter type: initial encounter Qualified Code(s): W19.XXXA - Unspecified fall, initial encounter Contusion of left hip Qualifiers: Encounter type: initial encounter Qualified Code(s): S70.02XA - Contusion of left hip, initial encounter Contusion of left shoulder Qualifiers: Encounter type: initial encounter Qualified Code(s): S40.012A - Contusion of left shoulder, initial encounter Head injury Qualifiers: Encounter type: initial encounter Qualified Code(s): S09.90XA - Unspecified injury of head, initial encounter Condition: Good Disposition: HOME, SELF-CARE Instructions: Head Injury Precautions ([facility]), Shoulder Injury ([facility]) Referrals: SIGIFREDO LEVINE MD [Primary Care Provider] - Follow up as needed
[2018-01-30] MEDS ORDERED: OXYCODONE-ACETAMINOPHEN 5-325 MG TABLET PO ONE (12:04)
--- NOTE | 2018-01-30 12:06 | RADIOLOGY REPORT (SQ) ---
EXAM DESCRIPTION: CHEST SINGLE VIEW COMPLETED DATE/TIME: 01/30/2018 11:37 am REASON FOR STUDY: fall COMPARISON: Chest films 03/09/2015, 05/21/2015, 12/25/2017 EXAM PARAMETERS: NUMBER OF VIEWS: One view. TECHNIQUE: Single frontal radiographic view of the chest acquired. RADIATION DOSE: NA LIMITATIONS: None. FINDINGS: LUNGS AND PLEURA: No opacities, masses or pneumothorax. No pleural effusion. MEDIASTINUM AND HILAR STRUCTURES: No masses. Contour normal. HEART AND VASCULAR STRUCTURES: Heart normal in size. Normal vasculature. BONES: No acute findings. HARDWARE: Clips right upper quadrant post cholecystectomy OTHER: No other significant finding. IMPRESSION: NO ACUTE RADIOGRAPHIC FINDING IN THE CHEST. TECHNICAL DOCUMENTATION: JOB ID: [id number] [employer]- All Rights Reserved Reading location - IP/workstation name: [email or web address]
--- NOTE | 2018-01-30 12:09 | RADIOLOGY REPORT (SQ) ---
EXAM DESCRIPTION: SHOULDER LEFT 2 OR MORE VIEWS COMPLETED DATE/TIME: 01/30/2018 11:37 am REASON FOR STUDY: FALL fall, injury, left shoulder pain COMPARISON: Chest and rib films 07/04/2015 Chest films 08/02/2016, 01/30/2018 NUMBER OF VIEWS: Three views. TECHNIQUE: Internal rotation, external rotation, and Y view images acquired of the left shoulder. LIMITATIONS: None. FINDINGS: MINERALIZATION: Osteopenic BONES: No acute fracture or dislocation. No worrisome bone lesions. JOINTS: Question widening of the left acromioclavicular joint. Correlate clinically. Normal alignment at the left glenohumeral joint. VISUALIZED LUNGS AND RIBS: No pneumothorax. No rib fracture. SOFT TISSUES: No radiopaque foreign body. OTHER: No other significant finding. IMPRESSION: Question widening at the left acromioclavicular joint. Bones osteopenic. Left shoulder films otherwise unremarkable TECHNICAL DOCUMENTATION: JOB ID: [id number] [employer]- All Rights Reserved Reading location - IP/workstation name: [email or web address]
--- NOTE | 2018-01-30 12:10 | RADIOLOGY REPORT (SQ) ---
EXAM DESCRIPTION: HIP LEFT AP/LATERAL COMPLETED DATE/TIME: 01/30/2018 11:37 am REASON FOR STUDY: fall injury pain, left hip pain COMPARISON: CT abdomen pelvis 07/04/2015 NUMBER OF VIEWS: Two views. TECHNIQUE: AP pelvis and additional frog-leg view of the left hip. LIMITATIONS: None. FINDINGS: MINERALIZATION: Osteopenic LEFT HIP: Old left subcapital femoral neck fracture stabilized with 3 lag screws. No acute fracture. Mild left hip joint space narrowing. No bulky bony spurring. RIGHT HIP: Mild right hip joint space narrowing. No acute fracture or malalignment. PUBIS AND ISCHIUM: No fracture. PELVIS: No fracture. SACRUM: No fracture or dislocation. No worrisome bone lesions. LOWER LUMBAR SPINE: Degenerative disc changes at L3-4 and L4-5 SOFT TISSUES: No findings. OTHER: No other significant finding. IMPRESSION: No acute findings TECHNICAL DOCUMENTATION: JOB ID: [id number] [employer]- All Rights Reserved Reading location - IP/workstation name: [email or web address]
--- NOTE | 2018-01-30 12:15 | RADIOLOGY REPORT (SQ) ---
EXAM DESCRIPTION: CT CERVICAL SPINE WITHOUT COMPLETED DATE/TIME: 01/30/2018 11:46 am REASON FOR STUDY: fall hip pain fall injury neck pain COMPARISON: CT cervical spine 09/27/2014 TECHNIQUE: Axial images acquired through the cervical spine without intravenous contrast. Images re viewed with lung, soft tissue and bone windows. Reconstructed coronal and sagittal MPR images review ed. Images stored on PACS. All CT scanners at this facility use dose modulation, iterative reconstruction, and/or weight based d osing when appropriate to reduce radiation dose to as low as reasonably achievable (ALARA). [facility]: Dose Right [facility]: CareDose [facility]: Dose Right [facility]: Teradose 4D [facility]: [employer] RADIATION DOSE: CT Rad equipment meets quality standard of care and radiation dose reduction techniq ues were employed. CTDIvol: 17.2 mGy. DLP: 301 mGy-cm. mGy. LIMITATIONS: None. FINDINGS: ALIGNMENT: Anatomic. MINERALIZATION: Normal. VERTEBRAL BODIES: No fractures or dislocation. DISCS: Diffuse disc space loss of height with mild posterior disc bulge and bony spurring at C4-5, C5 -6, and C6-7 with moderate bilateral foraminal narrowing at these levels. FACETS, LATERAL MASSES, POSTERIOR ELEMENTS: No fractures. No dislocation. No acute findings. HARDWARE: None in the spine. VISUALIZED RIBS: No fractures. LUNG APICES AND SOFT TISSUES: No significant or acute findings. OTHER: No other significant finding. IMPRESSION: No acute fracture or malalignment TECHNICAL DOCUMENTATION: JOB ID: [id number] Quality ID # [id number]: Final reports with documentation of one or more dose reduction techniques (e.g., Au tomated exposure control, adjustment of the mA and/or kV according to patient size, use of iterative reconstruction technique) 2010 [employer]- All Rights Reserved Reading location - IP/workstation name: [email or web address]
--- NOTE | 2018-01-30 12:19 | RADIOLOGY REPORT (SQ) ---
EXAM DESCRIPTION: CT HEAD WITHOUT COMPLETED DATE/TIME: 01/30/2018 11:49 am REASON FOR STUDY: fall hip pain fall, injury, head pain COMPARISON: CT brain 12/25/2017, 07/04/2015, 01/30/2015, 03/18/2012 TECHNIQUE: Axial images acquired through the brain without intravenous contrast. Images reviewed wi th bone, brain and subdural windows. Additional sagittal and coronal reconstructions were generated. Images stored on PACS. All CT scanners at this facility use dose modulation, iterative reconstruction, and/or weight based d osing when appropriate to reduce radiation dose to as low as reasonably achievable (ALARA). [facility]: Dose Right [facility]: CareDose [facility]: Dose Right [facility]: Teradose 4D [facility]: Smart [employer] RADIATION DOSE: CT Rad equipment meets quality standard of care and radiation dose reduction techniq ues were employed. CTDIvol: 53.2 mGy. DLP: 1017 mGy-cm. mGy. LIMITATIONS: None. FINDINGS: VENTRICLES: Normal size and contour. CEREBRUM: No CT evidence of acute large territory ischemic change, acute intracranial hemorrhage, mas s effect, or midline shift. Old infarcts in the left occipital lobe, right thalamus, left basal ganglia. Spotty moderate small v essel ischemic change in the hemispheric white matter. These findings are stable. CEREBELLUM: No masses. No hemorrhage. Mild pontine small vessel ischemic change. Old lacunar infar ct left cerebellar hemisphere. No evidence for acute infarction. EXTRAAXIAL SPACES: No fluid collections. No masses. ORBITS AND GLOBE: No intra- or extraconal masses. Post bilateral cataract surgery. CALVARIUM: No fracture. PARANASAL SINUSES: No fluid or mucosal thickening. SOFT TISSUES: No mass or hematoma. OTHER: No other significant finding. IMPRESSION: No acute findings. EVIDENCE OF ACUTE STROKE: NO. COMMENT: Quality ID # 436: Final reports with documentation of one or more dose reduction techniques (e.g., Automated exposure control, adjustment of the mA and/or kV according to patient size, use of iterative reconstruction technique) TECHNICAL DOCUMENTATION: JOB ID: [id number] [email or web address]- All Rights Reserved Reading location - IP/workstation name: [email or web address]
[2018-01-30 12:23] LABS: ABSOLUTE EOSINOPHILS # (AUTO) 0.1 10^3/uL (0.0-0.6); ABSOLUTE LYMPHOCYTES (AUTO) 0.8 10^3/uL (0.5-4.7); ABSOLUTE MONOCYTES (AUTO) 0.3 10^3/uL (0.1-1.4); BASOPHILS % (AUTO) 0.3 % (0-2); EOSINOPHILS % (AUTO) 1.4 % (0-6); HEMATOCRIT 35.9 % (36.0-47.0); HEMOGLOBIN 12.4 g/dL (12.0-15.5); LYMPHOCYTES % (AUTO) 15.1 % (13-45); MEAN CORPUSCULAR HEMOGLOBIN 32.2 pg (27.0-33.4); MEAN CORPUSCULAR HGB CONC 34.6 g/dL (32.0-36.0); MEAN CORPUSCULAR VOLUME 93 fl (80-97); MONOCYTES % (AUTO) 6.6 % (3-13); RED BLOOD COUNT 3.85 10^6/uL (3.72-5.28); RED CELL DISTRIBUTION WIDTH 13.9 % (11.5-14.0); SEGMENTED NEUTROPHILS % (AUTO) 76.6 % (42-78); TOTAL CELLS COUNTED % (AUTO) 100 %; WHITE BLOOD COUNT 5.2 10^3/uL (4.0-10.5)
[2018-01-30 12:27] LABS: INTERNATIONAL RATION (INR) 1.04; PROTHROMBIN TIME 14.1 SEC (11.4-15.4)
[2018-01-30 13:02] LABS: ANION GAP 7 (5-19); BLOOD UREA NITROGEN 24 mg/dL (7-20); CALCIUM 8.8 mg/dL (8.4-10.2); CARBON DIOXIDE 28 mmol/L (22-30); CHLORIDE 104 mmol/L (98-107); POTASSIUM 3.9 mmol/L (3.6-5.0); SODIUM 138.6 mmol/L (137-145)
--- NOTE | 2018-01-30 13:02 | EKG REPORT ---
SEVERITY:- NORMAL ECG - SINUS RHYTHM : Confirmed by: Robe Triplett MD 30-Jan-2018 13:01:32
[2018-01-30 13:03] LABS: GLUCOSE 178 mg/dL (75-110)
[2018-01-30 13:09] LABS: PLATELET COUNT 148 10^3/uL (150-450)
[2018-01-30 13:15] VITALS: BP 111/54
== END 2018-01-30 13:27 | disposition home or self-care (01) ==
LOC: ER 10:38
DX: S70.02XA Contusion of left hip, initial encounter (principal); S40.012A Contusion of left shoulder, initial encounter; S09.90XA Unspecified injury of head, initial encounter; M25.552 Pain in left hip; M25.512 Pain in left shoulder; W19.XXXA Unspecified fall, initial encounter; M21.70 Unequal limb length (acquired), unspecified site; E11.9 Type 2 diabetes mellitus without complications; Z88.8 Allergy status to other drugs, medicaments and biological substances
CPT/HCPCS: 93005; 99284; 36415; 85025; 85610; 85730; 80048; 71045; 73502; 73030; 70450; 72125; 93010; A9270

== ENCOUNTER 2018-02-05 13:36 | Emergency (ER) | payer MEDICARE, OTHER ==
--- NOTE | 2018-02-05 14:08 | ER Document Report ---
ED Medical Screen (RME) - General Chief Complaint: Hip Pain Stated Complaint: FALL/HIP PAIN Time Seen by Provider: 02/05/18 13:51 Notes: Patient is a 77-year-old female with recent fall that presents to the emergency department for chief complaint of bilateral hip pain, left worse than right. Patient is having extreme difficulty ambulating, due to pain in her hips, the left is worse than the right, she had a fall on the , was x-rayed at that time and was negative, but she has been having difficulty ambulating even a few steps at home, so she was brought back to the emergency department by her family. She currently has a Butrans patch on, and has been taking hydromorphone at home which has not been helping.. ROS: Unless otherwise stated in this report the patient's positive and negative responses for review of systems for constitutional, eyes, ENT, cardiovascular, respiratory, gastrointestinal, neurological, genitourinary, musculoskeletal, and integumentary systems and related systems to the presenting problem are either as stated in the HPI or were not pertinent or were negative for the symptoms and/or complaints related to the presenting medical problem. PHYSICAL EXAMINATION: Vital signs reviewed. GENERAL: Well-appearing, well-nourished and in no acute distress. HEAD: Atraumatic, normocephalic. EYES: Pupils equal round extraocular movements intact, conjunctiva are normal. ENT: Nares patent NECK: Normal range of motion CV: Heart regular rate and rhythm LUNGS: No respiratory distress Musculoskeletal: Pain with range of motion of the hips, patient examined in the wheelchair, therefore difficult exam, but with internal and external rotation patient did have pain, bilaterally, and tenderness with palpation over the greater trochanters bilaterally. NEUROLOGICAL: Normal speech PSYCH: Normal mood, normal affect. MDM: Patient seen and examined for rapid initial assessment. Vital signs reviewed. A comprehensive ED assessment and evaluation of the patient, analysis of test results and completion of the medical decision making process will be conducted by additional ED providers. *Note is created using voice recognition software and may contain spelling, syntax or grammatical errors. TRAVEL OUTSIDE OF THE [place] IN LAST 30 DAYS: No - Related Data Allergies/Adverse Reactions: doxepin Allergy (Verified 07/24/17 17:46) Past Medical History - Social History Chew tobacco use (# tins/day): No Frequency of alcohol use: None Drug Abuse: None - Past Medical History Cardiac Medical History: Reports: Hx Hypercholesterolemia - no meds x 2 years, after 60 pound wt loss, Hx Hypertension - no meds x 2 years, after 60 pound wt loss Denies: Hx Atrial Fibrillation, Hx Congestive Heart Failure, Hx Coronary Artery Disease, Hx Heart Attack, Hx Peripheral Vascular Disease, Hx Pulmonary Embolism, Hx Heart Murmur Pulmonary Medical History: Reports: Hx Pneumonia - denies hospitalization, Hx Sleep Apnea - CPAP ill fitting, does not wear Denies: Hx Asthma, Hx Bronchitis, Hx COPD, Hx Respiratory Failure, Hx Tuberculosis Neurological Medical History: Reports: Hx Cerebrovascular Accident - 2006, 2011 , Hx Seizures - possibly r/t severe "migraine type" AGUILAR's Endocrine Medical History: Reports: Hx Diabetes Mellitus Type 2, Hx Hypothyroidism - meds Rx'ed . Denies: Hx Graves' Disease, Hx Hyperthyroidism Renal/ Medical History: Denies: Hx End Stage Renal Disease, Hx Kidney Stones, Hx Ovarian Cysts, Hx Peritoneal Dialysis, Hx Pelvic Inflammatory Disease Malignancy Medical History: Denies: Hx Breast Cancer, Hx Cervical Cancer, Hx Leukemia, Hx Lung Cancer, Hx Ovarian Cancer GI Medical History: Reports: Hx Gastroesophageal Reflux Disease - meds x 20+ years, Hx Ulcer - . Denies: Hx Crohn's Disease, Hx Hepatitis, Hx Hiatal Hernia, Hx Irritable Bowel, Hx Liver Failure, Hx Pancreatitis Musculoskeltal Medical History: Reports Hx Arthritis, Denies Hx Fibromyalgia, Denies Hx Multiple Sclerosis, Denies Hx Muscular Dystrophy Psychiatric Medical History: Reports: Hx Dementia, Hx Depression Denies: Hx Bipolar Disorder, Hx Post Traumatic Stress Disorder, Hx Schizophrenia Traumatic Medical History: Reports: Hx Fractures - 5th toe RT foot Infectious Medical History: Denies: Hx Hepatitis, Hx HIV Past Surgical History: Reports: Hx Appendectomy - incidental with YOSELIN, Hx Cholecystectomy - open sheila , Hx Hysterectomy. Denies: Hx Bowel Surgery , Hx Section, Hx Colostomy, Hx Coronary Artery Bypass Graft, Hx Gastric Bypass Surgery, Hx Herniorrhaphy, Hx Mastectomy, Hx Open Heart Surgery, Hx Pacemaker, Hx Tonsillectomy, Hx Tubal Ligation - Immunizations Immunizations up to date: Yes Hx Diphtheria, Pertussis, Tetanus Vaccination: Yes Doctor's Discharge - Discharge Referrals: SIGIFREDO LEVINE MD [Primary Care Provider] - Follow up as needed
--- NOTE | 2018-02-05 15:12 | RADIOLOGY REPORT (SQ) ---
EXAM DESCRIPTION: CT PELVIS WITHOUT COMPLETED DATE/TIME: 02/05/2018 2:53 pm REASON FOR STUDY: left hip pain, fall COMPARISON: None. TECHNIQUE: CT scan of the pelvis performed without intravenous or oral contrast. Images reviewed wi th soft tissue and bone windows. Reconstructed coronal and sagittal MPR images reviewed. All images stored on PACS. All CT scanners at this facility use dose modulation, iterative reconstruction, and/or weight based d osing when appropriate to reduce radiation dose to as low as reasonably achievable (ALARA). [facility]: Dose Right [facility]: CareDose [facility]: Dose Right [facility]: Teradose 4D [facility]: [employer] RADIATION DOSE: CT Rad equipment meets quality standard of care and radiation dose reduction techniq ues were employed. CTDIvol: 10.6 mGy. DLP: 406 mGy-cm. mGy. LIMITATIONS: None. FINDINGS: PELVIC BONES: No acute fracture. No worrisome bone lesions. VISUALIZED SPINE: Lumbar degenerative disc changes. Sacralization of L5 on the left. HIP(S): No acute fracture or dislocation. No worrisome bone lesions. PELVIC SOFT TISSUES: No significant findings. EXTRAPELVIC SOFT TISSUES: No significant findings. OTHER: No other significant finding. IMPRESSION: Lumbar findings as described. No acute abnormality in the pelvis or hips. TECHNICAL DOCUMENTATION: JOB ID: [id number] Quality ID # [id number]: Final reports with documentation of one or more dose reduction techniques (e.g., Au tomated exposure control, adjustment of the mA and/or kV according to patient size, use of iterative reconstruction technique) 2010 [employer]- All Rights Reserved Reading location - IP/workstation name: [email or web address]
[2018-02-05] MEDS ORDERED: ACETAMINOPHEN 325 MG TABLET PO ONE (15:37)
--- NOTE | 2018-02-05 15:37 | ER Document Report ---
ED Hip Pain/Injury - General Chief Complaint: Hip Pain Stated Complaint: FALL/HIP PAIN Time Seen by Provider: 02/05/18 13:51 Mode of Arrival: Wheelchair Information source: Patient, Relative - daughter's Notes: 77 yo chronic degenerative back pain pt fell on 01-30 seen in ER and xray negative has not been walking well since. small shuffles, due to anterior left pelvis pain. Has walker and transfer device at home Lives with daughter who struggles with her own back pain. No fever, n/v/d. no abd pain. CT has been done alreay. Butrans 10mcg patch and dilaudid 2mg po bid prescribed by [facility] PA. Has not run out. Used to have PT for ambulation instruction . Normally walks bent forward from the waist. TRAVEL OUTSIDE OF THE [place] IN LAST 30 DAYS: No - Related Data Allergies/Adverse Reactions: doxepin Allergy (Verified 02/05/18 15:01) Past Medical History - General Information source: Patient, Relative - daughter - Social History Smoking Status: Never Smoker Chew tobacco use (# tins/day): No Frequency of alcohol use: None Drug Abuse: None Lives with: Family - daughter Family History: Reviewed & Not Pertinent Patient has suicidal ideation: No Patient has homicidal ideation: No - Past Medical History Cardiac Medical History: Reports: Hx Hypercholesterolemia - no meds x 2 years, after 60 pound wt loss, Hx Hypertension - no meds x 2 years, after 60 pound wt loss Pulmonary Medical History: Reports: Hx Pneumonia - denies hospitalization, Hx Sleep Apnea - CPAP ill fitting, does not wear Neurological Medical History: Reports: Hx Cerebrovascular Accident - 2011 , Hx Seizures - possibly r/t severe "migraine type" AGUILAR's Endocrine Medical History: Reports: Hx Diabetes Mellitus Type 2, Hx Hypothyroidism - meds Rx'ed GI Medical History: Reports: Hx Gastroesophageal Reflux Disease - meds x 20+ years, Hx Ulcer - Musculoskeletal Medical History: Reports Hx Arthritis Psychiatric Medical History: Reports: Hx Dementia, Hx Depression Traumatic Medical History: Reports: Hx Fractures - 5th toe RT foot Past Surgical History: Reports: Hx Appendectomy - incidental with YOSELIN, Hx Cholecystectomy - open sheila , Hx Hysterectomy - Immunizations Immunizations up to date: Yes Hx Diphtheria, Pertussis, Tetanus Vaccination: Yes Hx Pneumococcal Vaccination: 01/15/11 Review of Systems - Review of Systems Constitutional: No symptoms reported EENT: No symptoms reported Cardiovascular: No symptoms reported Respiratory: No symptoms reported Gastrointestinal: No symptoms reported Genitourinary: No symptoms reported Female Genitourinary: No symptoms reported Musculoskeletal: See HPI Skin: No symptoms reported Hematologic/Lymphatic: No symptoms reported Neurological/Psychological: No symptoms reported Physical Exam - Vital signs Vitals: Temp Pulse Resp BP Pulse Ox 97.5 F 73 18 115/62 93 02/05/18 13:44 02/05/18 13:44 02/05/18 13:44 02/05/18 13:44 02/05/18 13:44 Interpretation: Normal - General General appearance: Appears well, Alert - HEENT Head: Normocephalic, Atraumatic Eyes: Normal Pupils: PERRL Neck: Supple - Respiratory Respiratory status: No respiratory distress Chest status: Nontender Breath sounds: Normal Chest palpation: Normal - Cardiovascular Rhythm: Regular Heart sounds: Normal auscultation Murmur: No - Abdominal Inspection: Normal Distension: No distension Bowel sounds: Normal Tenderness: Nontender. No: Tender Organomegaly: No organomegaly Notes: tender over left pubis - Back Back: Normal, Tender - lumbar spine. No: Deformity/step-off, CVA tenderness - Extremities General upper extremity: Normal inspection, Nontender, Normal color, Normal ROM , Normal temperature General lower extremity: Normal inspection, Nontender, Normal color, Normal ROM , Normal temperature, Normal weight bearing. No: Raine's sign - Neurological Neuro grossly intact: Yes Cognition: Normal Orientation: AAOx4 [place] Coma Scale Eye Opening: Spontaneous Dang Coma Scale Verbal: Oriented Dang Coma Scale Motor: Obeys Commands [place] Coma Scale Total: 15 Speech: Normal Motor strength normal: LUE, RUE, LLE, RLE Sensory: Normal - Psychological Associated symptoms: Normal affect, Normal mood - Skin Skin Temperature: Warm Skin Moisture: Dry Skin Color: Normal Skin irregularity: negative: Rash Course - Re-evaluation Re-evalutation: 02/05/18 15:58 CT is scan is negative per radiologist. The patient did ambulate with assistance bearing weight on both legs. While she sat in the wheelchair at this time I showed her how to do range of motion with her hips and legs and her daughter will call her primary care doctor for referral to physical therapy. I also gave the patient permission that she can take her hydromorphone 3 times a day she has an appointment on Monday with Dr. Hayes for the pain medication increase - Vital Signs Vital signs: Temp Pulse Resp BP Pulse Ox 98.3 F 70 20 141/70 H 99 02/05/18 15:54 02/05/18 15:54 02/05/18 15:54 02/05/18 15:54 02/05/18 15:54 Discharge - Discharge Clinical Impression: left suprapubic tenderness, ambulation hesitancy Condition: Good Disposition: HOME, SELF-CARE Instructions: Acetaminophen, Chronic Pain Control ([facility]), Pelvic Pain ([facility]) Additional Instructions: Begin physical therapy for ambulation again Copy of negative CT scan is been given to you for your doctor See Dr. Saldivar on Monday to see if he will increase her pain medication for your chronic back pain Return to the emergency room for any worsening of the symptoms Use your walker slowly and safely Warm compress to the left pubic bone may help the pain Tylenol up to 4000 mg a day for pain Referrals: SIGIFREDO LEVINE MD [Primary Care Provider] - Follow up tomorrow DANIEL HAYES PA [NO LOCAL MD] - 02/07/18
[2018-02-05 15:56] VITALS: BP 141/70
[2018-02-05] MEDS ORDERED: HYDROMORPHONE HCL 2 MG TABLET PO ONE (15:58)
== END 2018-02-05 16:10 | disposition home or self-care (01) ==
LOC: ER 13:36
DX: R10.2 Pelvic and perineal pain (principal); R26.2 Difficulty in walking, not elsewhere classified; M25.552 Pain in left hip; E78.00 Pure hypercholesterolemia, unspecified; I10 Essential (primary) hypertension; Z90.49 Acquired absence of other specified parts of digestive tract; Z90.710 Acquired absence of both cervix and uterus
CPT/HCPCS: 99284; 72192; A9270 ×2

== ENCOUNTER 2018-06-10 14:30 | Emergency (ER) | payer MEDICARE, OTHER ==
[2018-06-10] MEDS ORDERED: NORMAL SALINE 500 ML IV ONE (15:46)
--- NOTE | 2018-06-10 15:51 | ER Document Report ---
ED Medical Screen (RME) - General Chief Complaint: Altered Mental Status Stated Complaint: WEAKNESS, CONFUSION Time Seen by Provider: 06/10/18 15:41 Primary Care Provider: SIGIFREDO LEVINE MD [Primary Care Provider] - Follow up as needed Notes: Patient is a 78-year-old female with dementia that presents to the emergency department for chief complaint of altered mental status, weakness worse over the past several days according to family members decreased appetite and decreased oral intake overall. denies noting any focal deficits, just overall feeling weak. ROS: Other than noted above, the 12 point review of systems was reviewed with the patient and were negative, all pertinent findings are included in the HPI. PHYSICAL EXAMINATION: Vital signs reviewed. GENERAL: Elderly female, no apparent or acute distress HEAD: Atraumatic, normocephalic. EYES: Pupils equal round extraocular movements intact, conjunctiva are normal. ENT: Nares patent NECK: Normal range of motion CV: Heart regular rate and rhythm LUNGS: No respiratory distress Musculoskeletal: Normal range of motion NEUROLOGICAL: Normal speech PSYCH: Normal mood, normal affect. MDM: Patient seen and examined for rapid initial assessment. Vital signs reviewed. A comprehensive ED assessment and evaluation of the patient, analysis of test results and completion of the medical decision making process will be conducted by additional ED providers. *Note is created using voice recognition software and may contain spelling, syntax or grammatical errors. TRAVEL OUTSIDE OF THE [place] IN LAST 30 DAYS: No - Related Data Allergies/Adverse Reactions: doxepin Allergy (Verified 02/05/18 15:01) Past Medical History - Social History Frequency of alcohol use: None Drug Abuse: None - Past Medical History Cardiac Medical History: Reports: Hx Hypercholesterolemia - no meds x 2 years, after 60 pound wt loss, Hx Hypertension - no meds x 2 years, after 60 pound wt loss Denies: Hx Atrial Fibrillation, Hx Congestive Heart Failure, Hx Coronary Artery Disease, Hx Heart Attack, Hx Peripheral Vascular Disease, Hx Pulmonary Embolism, Hx Heart Murmur Pulmonary Medical History: Reports: Hx Pneumonia - denies hospitalization, Hx Sleep Apnea - CPAP ill fitting, does not wear Denies: Hx Asthma, Hx Bronchitis, Hx COPD, Hx Respiratory Failure, Hx Tuberculosis Neurological Medical History: Reports: Hx Cerebrovascular Accident - 2006, 2011, Hx Seizures - possibly r/t severe "migraine type" AGUILAR's Endocrine Medical History: Reports: Hx Diabetes Mellitus Type 2, Hx Hypothyroidism - meds Rx'ed . Denies: Hx Graves' Disease, Hx Hyperthyroidism Renal/ Medical History: Denies: Hx End Stage Renal Disease, Hx Kidney Stones, Hx Ovarian Cysts, Hx Peritoneal Dialysis, Hx Pelvic Inflammatory Disease Malignancy Medical History: Denies: Hx Breast Cancer, Hx Cervical Cancer, Hx Leukemia, Hx Lung Cancer, Hx Ovarian Cancer GI Medical History: Reports: Hx Gastroesophageal Reflux Disease - meds x 20+ years, Hx Ulcer - . Denies: Hx Crohn's Disease, Hx Hepatitis, Hx Hiatal Hernia, Hx Irritable Bowel, Hx Liver Failure, Hx Pancreatitis Musculoskeltal Medical History: Reports Hx Arthritis, Denies Hx Fibromyalgia, Denies Hx Multiple Sclerosis, Denies Hx Muscular Dystrophy Psychiatric Medical History: Reports: Hx Dementia, Hx Depression Denies: Hx Bipolar Disorder, Hx Post Traumatic Stress Disorder, Hx Schizophrenia Traumatic Medical History: Reports: Hx Fractures - 5th toe RT foot Infectious Medical History: Denies: Hx Hepatitis, Hx HIV Past Surgical History: Reports: Hx Appendectomy - incidental with YOSELIN, Hx Cholecystectomy - open sheila , Hx Hysterectomy, Hx Orthopedic Surgery - left femur, trigger finger. Denies: Hx Bowel Surgery, Hx Section, Hx Colostomy, Hx Coronary Artery Bypass Graft, Hx Gastric Bypass Surgery, Hx Herniorrhaphy, Hx Mastectomy, Hx Open Heart Surgery, Hx Pacemaker, Hx Tonsillectomy, Hx Tubal Ligation - Immunizations Immunizations up to date: Yes Hx Diphtheria, Pertussis, Tetanus Vaccination: Yes Physical Exam - Vital signs Vitals: Temp Pulse Resp BP Pulse Ox 98.2 F 73 20 98/54 L 100 06/10/18 14:44 06/10/18 14:44 06/10/18 14:44 06/10/18 14:44 06/10/18 14:44 Course - Vital Signs Vital signs: Temp Pulse Resp BP Pulse Ox 98.2 F 73 20 98/54 L 100 06/10/18 14:44 06/10/18 14:44 06/10/18 14:44 06/10/18 14:44 06/10/18 14:44 Doctor's Discharge - Discharge Referrals: SIGIFREDO LEVINE MD [Primary Care Provider] - Follow up as needed
[2018-06-10 16:52] LABS: ABSOLUTE EOSINOPHILS # (AUTO) 0.1 10^3/uL (0.0-0.6); ABSOLUTE LYMPHOCYTES (AUTO) 1.8 10^3/uL (0.5-4.7); MEAN CORPUSCULAR HGB CONC 35.3 g/dL (32.0-36.0); TOTAL CELLS COUNTED % (AUTO) 100 %
[2018-06-10 16:57] LABS: ABSOLUTE MONOCYTES (AUTO) 0.4 10^3/uL (0.1-1.4); BASOPHILS % (AUTO) 0.7 % (0-2); EOSINOPHILS % (AUTO) 1.2 % (0-6); HEMATOCRIT 41.7 % (36.0-47.0); HEMOGLOBIN 14.7 g/dL (12.0-15.5); LYMPHOCYTES % (AUTO) 28.4 % (13-45); MEAN CORPUSCULAR HEMOGLOBIN 35.1 pg (27.0-33.4); MEAN CORPUSCULAR VOLUME 99 fl (80-97); MONOCYTES % (AUTO) 5.7 % (3-13); PLATELET COUNT 204 10^3/uL (150-450); RED CELL DISTRIBUTION WIDTH 14.4 % (11.5-14.0); WHITE BLOOD COUNT 6.2 10^3/uL (4.0-10.5)
[2018-06-10 17:11] LABS: ALANINE AMINOTRANSFERASE 53 U/L (9-52); ALKALINE PHOSPHATASE 63 U/L (38-126); ANION GAP 13 (5-19); ASPARTATE AMINO TRANSFERASE 57 U/L (14-36); BILIRUBIN,DIRECT 0.4 mg/dL (0.0-0.4); BILIRUBIN,TOTAL 0.9 mg/dL (0.2-1.3); BLOOD UREA NITROGEN 28 mg/dL (7-20); CALCIUM 9.4 mg/dL (8.4-10.2); CARBON DIOXIDE 28 mmol/L (22-30); CHLORIDE 99 mmol/L (98-107); CREATINE KINASE 335 U/L (30-135); GLUCOSE 193 mg/dL (75-110); POTASSIUM 3.9 mmol/L (3.6-5.0); SODIUM 140.3 mmol/L (137-145); TOTAL PROTEIN 8.7 g/dL (6.3-8.2)
--- NOTE | 2018-06-10 18:04 | RADIOLOGY REPORT (SQ) ---
EXAM DESCRIPTION: CHEST SINGLE VIEW COMPLETED DATE/TIME: 06/10/2018 5:52 pm REASON FOR STUDY: weakness,ams COMPARISON: 01/30/2018 and earlier EXAM PARAMETERS: NUMBER OF VIEWS: One view. TECHNIQUE: Single frontal radiographic view of the chest acquired. RADIATION DOSE: NA LIMITATIONS: None. FINDINGS: LUNGS AND PLEURA: Lungs are hypoaerated. No focal consolidation. No pleural effusion. N o pneumothorax. Retrocardiac opacity with internal air, corresponding to the hiatal hernia seen on C T of 2015. MEDIASTINUM AND HILAR STRUCTURES: No masses. Contour normal. HEART AND VASCULAR STRUCTURES: Heart normal in size. Normal vasculature. Calcifications of the aort ic arch. BONES: No acute findings. HARDWARE: None in the chest. Metallic clips of the visualized upper abdomen. OTHER: No other significant finding. IMPRESSION: NO ACUTE RADIOGRAPHIC FINDING IN THE CHEST. TECHNICAL DOCUMENTATION: JOB ID: [id number] [email or web address]- All Rights Reserved Reading location - IP/workstation name: [email or web address]
[2018-06-10 18:24] LABS: APPEARANCE,URINE CLOUDY; BILIRUBIN,URINE NEGATIVE (NEGATIVE); COLOR,URINE YELLOW; GLUCOSE, URINE NEGATIVE (NEGATIVE); KETONES,URINE NEGATIVE (NEGATIVE); LEUKOCYTE ESTERASE,URINE NEGATIVE (NEGATIVE); NITRITE,URINE NEGATIVE (NEGATIVE); PROTEIN,URINE NEGATIVE (NEGATIVE); URINE SPECIFIC GRAVITY 1.015; UROBILINOGEN,URINE NEGATIVE mg/dL (<2.0)
--- NOTE | 2018-06-10 21:13 | ER Document Report ---
ED General - General Chief Complaint: Altered Mental Status Stated Complaint: WEAKNESS, CONFUSION Time Seen by Provider: 06/10/18 15:41 Primary Care Provider: SIGIFREDO LEVINE MD [Primary Care Provider] - Follow up in 3-5 days Cannot obtain history due to: Dementia Notes: Patient is a 78-year-old female with a past medical history of dementia who presents with her family due to 2 weeks of eating and drinking almost nothing, become increasingly weak, hardly getting out of bed at this point. Family states that since February the patient has had progressive deterioration in her willingness to eat and drink and has become much more acute in the last 2 weeks. They also note that over that time she has had increasingly less desire to get up out of bed and at this point is so weak that she cannot perform hardly any motions without difficulty or assistance. They state that they brought her to the hospital today to determine whether or not her refusal to eat or drink is coming from an alternative cause to dementia and to ensure that there are no ill health effects from her not eating or drinking. Nothing seems to improve or worsen her symptoms. She has not seen her primary care physician regarding today's concerns. History is otherwise limited secondary to the patient's demen tia. TRAVEL OUTSIDE OF THE [place] IN LAST 30 DAYS: No - Related Data Allergies/Adverse Reactions: doxepin Allergy (Verified 02/05/18 15:01) Past Medical History - General Information source: Relative Cannot obtain history due to: Dementia - Social History Smoking Status: Never Smoker Frequency of alcohol use: None Drug Abuse: None Lives with: Family Family History: Reviewed & Not Pertinent Patient has suicidal ideation: No Patient has homicidal ideation: No - Past Medical History Cardiac Medical History: Reports: Hx Hypercholesterolemia - no meds x 2 years, after 60 pound wt loss, Hx Hypertension - no meds x 2 years, after 60 pound wt loss Denies: Hx Atrial Fibrillation, Hx Congestive Heart Failure, Hx Coronary Artery Disease, Hx Heart Attack, Hx Peripheral Vascular Disease, Hx Pulmonary Embolism, Hx Heart Murmur Pulmonary Medical History: Reports: Hx Pneumonia - denies hospitalization, Hx Sleep Apnea - CPAP ill fitting, does not wear Denies: Hx Asthma, Hx Bronchitis, Hx COPD, Hx Respiratory Failure, Hx Tuberculosis Neurological Medical History: Reports: Hx Cerebrovascular Accident - 2006, 2011, Hx Seizures - possibly r/t severe "migraine type" AGUILAR's Endocrine Medical History: Reports: Hx Diabetes Mellitus Type 2, Hx Hypothyroidism - meds Rx'ed . Denies: Hx Graves' Disease, Hx Hyperthyroidism Renal/ Medical History: Denies: Hx End Stage Renal Disease, Hx Kidney Stones, Hx Ovarian Cysts, Hx Peritoneal Dialysis, Hx Pelvic Inflammatory Disease Malignancy Medical History: Denies: Hx Breast Cancer, Hx Cervical Cancer, Hx Leukemia, Hx Lung Cancer, Hx Ovarian Cancer GI Medical History: Reports: Hx Gastroesophageal Reflux Disease - meds x 20+ years, Hx Ulcer - . Denies: Hx Crohn's Disease, Hx Hepatitis, Hx Hiatal Hernia, Hx Irritable Bowel, Hx Liver Failure, Hx Pancreatitis Musculoskeletal Medical History: Reports Hx Arthritis, Denies Hx Fibromyalgia, Denies Hx Multiple Sclerosis, Denies Hx Muscular Dystrophy Psychiatric Medical History: Reports: Hx Dementia, Hx Depression Denies: Hx Bipolar Disorder, Hx Post Traumatic Stress Disorder, Hx Schizophrenia Traumatic Medical History: Reports: Hx Fractures - 5th toe RT foot Infectious Medical History: Denies: Hx Hepatitis, Hx HIV Past Surgical History: Reports: Hx Appendectomy - incidental with YOSELIN, Hx Cholecystectomy - open sheila , Hx Hysterectomy, Hx Orthopedic Surgery - left femur, trigger finger. Denies: Hx Bowel Surgery, Hx Section, Hx Colostomy, Hx Coronary Artery Bypass Graft, Hx Gastric Bypass Surgery, Hx Herniorrhaphy, Hx Mastectomy, Hx Open Heart Surgery, Hx Pacemaker, Hx Tonsillectomy, Hx Tubal Ligation - Immunizations Immunizations up to date: Yes Hx Diphtheria, Pertussis, Tetanus Vaccination: Yes Hx Pneumococcal Vaccination: 01/15/11 Review of Systems - Review of Systems Notes: Constitutional: Negative for fever. Positive for anorexia HENT: Negative for sore throat. Eyes: Negative for visual changes. Cardiovascular: Negative for chest pain. Respiratory: Negative for shortness of breath. Gastrointestinal: Negative for abdominal pain, vomiting or diarrhea. Genitourinary: Negative for dysuria. Musculoskeletal: Negative for back pain. Skin: Negative for rash. Neurological: Negative for headaches, weakness or numbness. 10 point ROS negative except as marked above and in HPI. Physical Exam - Vital signs Vitals: Temp Pulse Resp BP Pulse Ox 98.2 F 73 20 98/54 L 100 06/10/18 14:44 06/10/18 14:44 06/10/18 14:44 06/10/18 14:44 06/10/18 14:44 Interpretation: Hypotensive Notes: PHYSICAL EXAMINATION: GENERAL: Well-appearing, well-nourished and in no acute distress. HEAD: Atraumatic, normocephalic. EYES: Pupils equal round and reactive to light, extraocular movements intact, sclera anicteric, conjunctiva are normal. ENT: nares patent, oropharynx clear without exudates. Moderately dry mucous membranes. NECK: Normal range of motion, supple without lymphadenopathy LUNGS: Breath sounds clear to auscultation bilaterally and equal. No wheezes rales or rhonchi. HEART: Regular rate and rhythm without murmurs ABDOMEN: Soft, nontender, normoactive bowel sounds. No guarding, no rebound. No masses appreciated. EXTREMITIES: Normal range of motion, no pitting or edema. No cyanosis. NEUROLOGICAL: No focal neurological deficits. Moves all extremities spontaneously and on command. PSYCH: Alert, oriented to person place but not year, month SKIN: Warm, Dry, normal turgor, no rashes or lesions noted. Course - Re-evaluation Re-evalutation: 06/11/18 03:50 Patient presents with findings consistent with acute kidney injury, global dehydration and mild hypotension secondary to malnourishment and refusal to eat or drink. Labs otherwise unremarkable. Overall clinical picture is suggestive of progressive dementia with loss of appetite. I have advised family that this is a typical part of a progression of dementia and will likely only worsen. I have advised that they should continue to try to offer foods that are appealing to the patient and encourage frequent fluid consumption. At this time will discharge with return precautions and follow-up recommendations. Verbal discharge instructions given a the bedside and opportunity for questions given. Medication warnings reviewed. Patient is in agreement with this plan and has verbalized understanding of return precautions and the need for primary care follow-up in the next 24-72 hours. - Vital Signs Vital signs: Temp Pulse Resp BP Pulse Ox 98.0 F 59 L 12 123/78 98 06/10/18 21:10 06/10/18 17:35 06/10/18 21:01 06/10/18 21:00 06/10/18 21:01 - Laboratory Result Diagrams: 06/10/18 16:20 06/10/18 16:20 Laboratory results interpreted by me: 06/10/18 06/10/18 16:20 16:20 MCV 99 H MCH 35.1 H RDW 14.4 H BUN 28 H Creatinine 1.67 H Est GFR ( Amer) 36 L Est GFR (Non-Af Amer) 30 L Glucose 193 H AST 57 H ALT 53 H Creatine Kinase 335 H Total Protein 8.7 H - Diagnostic Test Radiology reviewed: Image reviewed, Reports reviewed Radiology results interpreted by me: 06/11/18 03:50 Chest x-ray: No acute infiltrate or pneumothorax - EKG Interpretation by Me Additional EKG results interpreted by me: 06/11/18 03:51 Sinus rhythm, rate 67. No ST elevations or depressions. QTC is 393. Discharge - Discharge Clinical Impression: Anorexia, Generalized weakness, Acute kidney injury, Dehydration Dementia Qualifiers: Dementia type: unspecified type Dementia behavioral disturbance: without behavioral disturbance Qualified Code(s): F03.90 - Unspecified dementia without behavioral disturbance Condition: Good Disposition: HOME, SELF-CARE Additional Instructions: Please follow-up with your primary care doctor regarding the emergency department visit today. Your inability or refusal to eat and drink is causing some deterioration of your kidney functions. This is also likely directly contributing to your weakness. You need to be getting up, out of bed and trying to eat and drink as much as you are able. Referrals: SIGIFREDO LEVINE MD [Primary Care Provider] - Follow up in 3-5 days
[2018-06-10 21:16] VITALS: BP 123/78
--- NOTE | 2018-06-10 22:29 | EKG REPORT ---
SEVERITY:- ABNORMAL ECG - SINUS RHYTHM LEFT POSTERIOR FASCICULAR BLOCK NONSPECIFIC T ABNORMALITIES, LATERAL LEADS : Confirmed by: Robe Triplett MD 10-Jun-2018 22:29:02
== END 2018-06-10 21:36 | disposition home or self-care (01) ==
LOC: ER 14:30
DX: F03.90 Unspecified dementia, unspecified severity, without behavioral disturbance, psychotic disturbance, mood disturbance, and anxiety (principal); E86.0 Dehydration; N17.9 Acute kidney failure, unspecified; R63.0 Anorexia; R53.1 Weakness; E11.9 Type 2 diabetes mellitus without complications; Z88.8 Allergy status to other drugs, medicaments and biological substances
CPT/HCPCS: 93005; 99285; 96360; 96361; 51701; 36415; 87086; 82550; 85025; 80053; 81001; 84484; 71045; 93010; J7040